=== PATIENT | female | born 1990 | race Caucasian/White ===

== ENCOUNTER 2017-01-20 08:43 | Inpatient (IN) | payer MEDICAID ==
[~2017-01-20] VITALS: Ht 160 cm; Wt 72.6 kg
[2017-01-20] MEDS: DEXT 5%-NACL 0.45% 1000 ML INJ 1,000 ML IV SCH ×2 (00:57→14:47)
[2017-01-20 08:44] VITALS: BP 128/70; PULSE 92; RESP 18; TEMP 100; O2SAT 99
[2017-01-20] MEDS ORDERED: KETOROLAC TROMETHAMINE 30 MG/ML (IVP) VIAL IV PUSH ONE (09:30)
[2017-01-20] MEDS ORDERED: MORPHINE SULFATE 4 MG/ML INJ IV PUSH ONE (09:30)
[2017-01-20] MEDS ORDERED: ONDANSETRON HCL 4 MG/2 ML VIAL IV PUSH ONE (09:30)
[2017-01-20] MEDS ORDERED: SODIUM CHLOR 0.9% 1000 ML INJ 1,000 ML IV ONE (09:30)
--- NOTE | 2017-01-20 09:31 | PD ---
HPI Chief Complaint: Flank/Kidney Pain Time Seen by Provider: 09:17 Travel History International Travel<30 days: No Contact w/Intl Traveler<30days: No Traveled to known affect area: No History of Present Illness HPI This is a 26-year-old female who presents to the emergency department with bilateral flank pain that's been going on for 2 days, constant, severe, associated with multiple episodes of vomiting. She denies any fevers or chills. She says that her right flank pain is worse and radiates into her lower abdomen. She has a history kidney stones. In April she had a kidney stone surgically removed in [place]. She went to the emergency department last night and had a CT scan done but she doesn't know what the results were and she was discharged with pain control. She says overnight her pain is worsened and she's been throwing up and not able to keep her pain medication down. PFSH Past Medical History Narrative Medical Kidney stones Medical History: Denies Significant Hx Tetanus Vaccination: Unknown Influenza Vaccination: No ?: Not Past Surgical History Surgical History: No Previous Surgery Social History Alcohol Use: No Tobacco Use: Yes Substance Use: Yes (marijuana) Allergies-Medications (Allergen,Severity, Reaction): Coded Allergies: Penicillins (Verified Allergy, Unknown, Rash, 01/20/17) Reported Meds & Prescriptions Reported Meds & Active Scripts Active No Active Prescriptions or Reported Medications Review of Systems Except as stated in HPI: all other systems reviewed are Neg Physical Exam Narrative GENERAL:Well appearing, no acute distress SKIN: Focused skin assessment warm and dry. HEAD: Atraumatic. Normocephalic. EYES: Pupils equal and round. No injection or drainage. ENT: Moist mucous membranes NECK: Trachea midline. CARDIOVASCULAR: Regular rate and rhythm. No murmur appreciated. RESPIRATORY: Clear to auscultation. Breath sounds equal bilaterally. GASTROINTESTINAL: Abdomen soft, diffusely mildly tender with no rebound or guarding. : Bilateral CVA tenderness. MUSCULOSKELETAL: No obvious deformities. NEUROLOGICAL: Awake and alert. No obvious cranial nerve deficits. Moving all extremities. PSYCHIATRIC: Appropriate mood and affect; insight and judgment normal. Data Data Last Documented VS Vital Signs Date Time Temp Pulse Resp B/P (MAP) Pulse Ox O2 Delivery O2 Flow Rate FiO2 01/20/17 08:44 100.0 92 18 128/70 (89) 99 Room Air Orders Orders Complete Blood Count With Diff (01/20/17 09:24) Comprehensive Metabolic Panel (01/20/17 09:24) ^ Insert Iv (01/20/17 09:24) Urinalysis - C+S If Indicated (01/20/17 09:24) Sodium Chlor 0.9% 1000 Ml Inj (Ns 1000 M (01/20/17 09:30) Ed Urine Pregnancytest Poc (01/20/17 09:24) Ketorolac Inj (Toradol Inj) (01/20/17 09:30) Ondansetron Inj (Zofran Inj) (01/20/17 09:30) Morphine Inj (Morphine Inj) (01/20/17 09:30) Urine Culture (01/20/17 09:35) Blood Culture (01/20/17 10:42) Lactic Acid (01/20/17 10:42) Ciprofloxacin 400 Mg Premix (Cipro 400 M (01/20/17 10:45) Consult Urology (01/20/17 ) (Hub Use Only)Inp Phy Cons/Ref (01/20/17 ) Admit Order (Ed Use Only) (01/20/17 12:09) Labs Laboratory Tests Test 01/20/17 09:35 01/20/17 10:45 White Blood Count 19.1 TH/MM3 Red Blood Count 4.32 MIL/MM3 Hemoglobin 14.3 GM/DL Hematocrit 41.5 % Mean Corpuscular Volume 96.0 FL Mean Corpuscular Hemoglobin 33.1 PG Mean Corpuscular Hemoglobin Concent 34.5 % Red Cell Distribution Width 12.7 % Platelet Count 231 TH/MM3 Mean Platelet Volume 7.8 FL Neutrophils (%) (Auto) 87.6 % Lymphocytes (%) (Auto) 6.0 % Monocytes (%) (Auto) 5.7 % Eosinophils (%) (Auto) 0.1 % Basophils (%) (Auto) 0.6 % Neutrophils # (Auto) 16.8 TH/MM3 Lymphocytes # (Auto) 1.1 TH/MM3 Monocytes # (Auto) 1.1 TH/MM3 Eosinophils # (Auto) 0.0 TH/MM3 Basophils # (Auto) 0.1 TH/MM3 CBC Comment DIFF FINAL Differential Comment Urine Color YELLOW Urine Turbidity HAZY Urine pH 7.5 Urine Specific [place] 1.019 Urine Protein TRACE mg/dL Urine Glucose (UA) NEG mg/dL Urine Ketones NEG mg/dL Urine Occult Blood SMALL Urine Nitrite NEG Urine Bilirubin NEG Urine Urobilinogen LESS THAN 2.0 MG/DL Urine Leukocyte Esterase MOD Urine RBC 22 /hpf Urine WBC 45 /hpf Urine Squamous Epithelial Cells 7 /hpf Urine Bacteria OCC /hpf Urine Mucus FEW /lpf Microscopic Urinalysis Comment CULTURE INDICATED Blood Urea Nitrogen 15 MG/DL Creatinine 1.35 MG/DL Random Glucose 98 MG/DL Total Protein 6.8 GM/DL Albumin 3.3 GM/DL Calcium Level 9.0 MG/DL Alkaline Phosphatase 70 U/L Aspartate Amino Transf (AST/SGOT) 22 U/L Alanine Aminotransferase (ALT/SGPT) 31 U/L Total Bilirubin 0.6 MG/DL Sodium Level 138 MEQ/L Potassium Level 3.8 MEQ/L Chloride Level 108 MEQ/L Carbon Dioxide Level 22.3 MEQ/L Anion Gap 8 MEQ/L Estimat Glomerular Filtration Rate 47 ML/MIN Lactic Acid Level 1.3 mmol/L [facility] Medical Decision Making Medical Screen Exam Complete: Yes Emergency Medical Condition: Yes Medical Record Reviewed: Yes (outside hospital CT scan demonstrates a stone at the right UPJ that is 1 x 1.3 cm) Interpretation(s) Temperature is 100.0 Leukocytosis of 19 87% neutrophils Electrolytes are reassuring Lactic acid is 1.3 Urinalysis demonstrates an infection Differential Diagnosis Hydronephrosis, pyelonephritis, urinary tract infection, nephrolithiasis Narrative Course This is a 26-year-old female who presents to the emergency department and diagnosed with a kidney stone yesterday at [place] which was 1 x 1.3 cm at the UPJ. Patient presents today feeling worse with fevers, vomiting and increasing pain. Labs demonstrate a leukocytosis of 19 and pyuria as well as blood in the urine. Patient was started on ciprofloxacin and given pain control and antiemetics. She'll be admitted for urologic intervention in the setting of a potentially infected obstructing kidney stone. Physician Communication Physician Communication Discussed with Dr. Ramírez and Dr. Taylor Diagnosis Primary Impression: Obstructive uropathy Admitting Information Admitting Physician Requests: Admit Scripts No Active Prescriptions or Reported Meds Bere Dias MD Jan 20, 2017 09:31
[2017-01-20 10:08] LABS: AUTOMATED NEUTROPHIL # 16.8 TH/MM3 (1.8-7.7); BASOPHIL # 0.1 TH/MM3 (0-0.2); BASOPHIL % 0.6 % (0.0-2.0); EOSINOPHIL % 0.1 % (0.0-4.0); HEMATOCRIT 41.5 % (35.0-46.0); HEMO FLAGS DIFF FINAL; LYMPHOCYTE # 1.1 TH/MM3 (1.0-4.8); MEAN CORPUSCULAR HEMOGLOBIN 33.1 PG (27.0-34.0); MEAN CORPUSCULAR HGB CONC 34.5 % (32.0-36.0); MONO % 5.7 % (0.0-8.0); NEUT % 87.6 % (16.0-70.0); PLATELET COUNT 231 TH/MM3 (150-450); RED BLOOD COUNT 4.32 MIL/MM3 (4.00-5.30); RED CELL DISTRIBUTION WIDTH 12.7 % (11.6-17.2); WHITE BLOOD COUNT 19.1 TH/MM3 (4.0-11.0)
[2017-01-20 10:11] LABS: BACTERIA, URINE OCC /hpf; BLOOD, URINE SMALL (NEG); COMMENT (UR) CULTURE INDICATED; CULTURE IF INDICATED CULTURE INDICATED; GLUCOSE,URINE NEG (NEG); KETONE, URINE NEG (NEG); MUCUS URINE FEW /lpf (OCC); NITRITE,URINE NEG (NEG); PH, URINE 7.5 (5.0-8.5); SQUAMOUS EPITHELIAL CELL URINE 7 /hpf (0-5); URINE COLOR YELLOW (YELLW/STRAW)
[2017-01-20 10:29] LABS: ANION GAP 8 MEQ/L (5-15); AST (GOT) 22 U/L (15-37); BICARBONATE 22.3 MEQ/L (21.0-32.0); BLOOD UREA NITROGEN 15 MG/DL (7-18); CHLORIDE 108 MEQ/L (98-107); GLOMERULAR FILTRATION RATE 47 ML/MIN (>89); POTASSIUM 3.8 MEQ/L (3.5-5.1); SODIUM (NA) 138 MEQ/L (136-145)
[2017-01-20 10:30] LABS: ALT (GPT) 31 U/L (10-53)
[2017-01-20 10:32] LABS: ALKALINE PHOSPHATASE 70 U/L (45-117); TOTAL BILIRUBIN ADULT 0.6 MG/DL (0.2-1.0)
[2017-01-20] MEDS ORDERED: CIPROFLOXACIN 400 MG PREMIX 200 ML IV ONE (10:45)
[2017-01-20 11:00] VITALS: BP 124/73; PULSE 87; RESP 17; O2SAT 98
[2017-01-20] MEDS ORDERED: ONDANSETRON HCL 4 MG/2 ML VIAL IV PUSH PRN (12:15)
[2017-01-20] MEDS ORDERED: SODIUM CHLORIDE 0.9% FLUSH 10 ML FLUSH IV FLUSH PRN (12:15)
[2017-01-20 12:47] VITALS: BP 126/69
--- NOTE | 2017-01-20 13:12 | PD.CONS ---
HPI Service Urology Consult Requested By Reason for Consult Obstructing right ureteropelvic junction calculus Primary Care Physician No Primary Care Physician Diagnosis: History of Present Illness 26-year-old female with recent development right flank pain who presented to [facility] in [facility] yesterday and was diagnosed with an obstructing 1.3 cm right renal pelvis calculus. Patient was treated and released and repeat present to the emergency room here at [place] earlier today with worsening symptoms. Patient was admitted to the medical service and a urology consult placed. Upon arrival to the emergency room the patient was noted to be febrile with elevation in her white blood cell count. Patient does have a history of prior nephrolithiasis and is status post percutaneous stone removal in April of this year. At the time of consultation the patient was resting comfortably in her pain well managed. Review of Systems Constitutional: COMPLAINS OF: Fever, Chills Cardiovascular: DENIES: Chest pain Gastrointestinal: COMPLAINS OF: Abdominal pain (right side) Genitourinary: DENIES: Hematuria Musculoskeletal: COMPLAINS OF: Back pain (right flank) Except as stated in HPI: all other systems reviewed are Neg Past Family Social History Past Medical History Nephrolithiasis Past Surgical History Status post percutaneous stone removal Reported Medications Refer to EMR Allergies: Coded Allergies: Penicillins (Verified Allergy, Unknown, Rash, 01/20/17) Active Ordered Medications Refer to EMR Family History Mother with history nephrolithiasis Social History Positive tobacco usage. Denies alcohol or intravenous drug abuse. Physical Exam Vital Signs Date Time Temp Pulse Resp B/P (MAP) Pulse Ox O2 Delivery O2 Flow Rate FiO2 01/20/17 12:47 84 15 126/69 (88) 99 01/20/17 11:00 87 17 124/73 (90) 98 Room Air 01/20/17 08:44 100.0 92 18 128/70 (89) 99 Room Air Physical Exam GENERAL: This is a well-nourished, well-developed patient, in no apparent distress. SKIN: No rashes, ecchymoses or lesions. Cool and dry. HEAD: Atraumatic. Normocephalic. No temporal or scalp tenderness. EYES: Pupils equal round and reactive. Extraocular motions intact. No scleral icterus. No injection or drainage. ENT: Nose without bleeding, purulent drainage or septal hematoma. Throat without erythema, tonsillar hypertrophy or exudate. Uvula midline. Airway patent. NECK: Trachea midline. No JVD or lymphadenopathy. Supple, nontender, no meningeal signs. CARDIOVASCULAR: Regular rate and rhythm without murmurs, gallops, or rubs. RESPIRATORY: Clear to auscultation. Breath sounds equal bilaterally. No wheezes , rales, or rhonchi. GASTROINTESTINAL: Abdomen soft, non-tender, nondistended. No hepato-splenomegaly , or palpable masses. No guarding. GENITOURINARY: No CVA tenderness MUSCULOSKELETAL: Extremities without clubbing, cyanosis, or edema. No joint tenderness, effusion, or edema noted. No calf tenderness. Negative Homans sign bilaterally. NEUROLOGICAL: Awake and alert. Cranial nerves II through XII intact. Motor and sensory grossly within normal limits. Five out of 5 muscle strength in all muscle groups. Normal speech. Lab results reviewed: Yes Laboratory Tests Test 01/20/17 09:35 01/20/17 10:45 White Blood Count 19.1 Red Blood Count 4.32 Hemoglobin 14.3 Hematocrit 41.5 Mean Corpuscular Volume 96.0 Mean Corpuscular Hemoglobin 33.1 Mean Corpuscular Hemoglobin Concent 34.5 Red Cell Distribution Width 12.7 Platelet Count 231 Mean Platelet Volume 7.8 Neutrophils (%) (Auto) 87.6 Lymphocytes (%) (Auto) 6.0 Monocytes (%) (Auto) 5.7 Eosinophils (%) (Auto) 0.1 Basophils (%) (Auto) 0.6 Neutrophils # (Auto) 16.8 Lymphocytes # (Auto) 1.1 Monocytes # (Auto) 1.1 Eosinophils # (Auto) 0.0 Basophils # (Auto) 0.1 CBC Comment DIFF FINAL Differential Comment Urine Color YELLOW Urine Turbidity HAZY Urine pH 7.5 Urine Specific [place] 1.019 Urine Protein TRACE Urine Glucose (UA) NEG Urine Ketones NEG Urine Occult Blood SMALL Urine Nitrite NEG Urine Bilirubin NEG Urine Urobilinogen LESS THAN 2.0 Urine Leukocyte Esterase MOD Urine RBC 22 Urine WBC 45 Urine Squamous Epithelial Cells 7 Urine Bacteria OCC Urine Mucus FEW Microscopic Urinalysis Comment CULTURE INDICATED Blood Urea Nitrogen 15 Creatinine 1.35 Random Glucose 98 Total Protein 6.8 Albumin 3.3 Calcium Level 9.0 Alkaline Phosphatase 70 Aspartate Amino Transf (AST/SGOT) 22 Alanine Aminotransferase (ALT/SGPT) 31 Total Bilirubin 0.6 Sodium Level 138 Potassium Level 3.8 Chloride Level 108 Carbon Dioxide Level 22.3 Anion Gap 8 Estimat Glomerular Filtration Rate 47 Lactic Acid Level 1.3 Date/Time Source Procedure Growth Status 01/20/17 10:50 Blood Peripheral Aerobic Blood Culture Pending Received 01/20/17 10:50 Blood Peripheral Anaerobic Blood Culture Pending Received 01/20/17 09:35 Urine Clean Catch Urine Culture Pending Received Result Diagram: 01/20/17 0935 01/20/17 0935 Assessment and Plan Assessment and Plan Urologic impression: Obstructing 1.3 cm right ureteropelvic junction calculus Plan: #1 keep patient nothing by mouth. #2 patient scheduled for cystoscopy, right retrograde pyelogram and right ureteral stent placement this evening. Ignacio Ramírez MD Jan 20, 2017 13:12
--- NOTE | 2017-01-20 13:38 | HHI.HP ---
[facility] No Primary Care Physician Admission Diagnosis obstructing uropathy Diagnoses: Chief Complaint: Right flank pain Travel History International Travel<30 Days: No Contact w/Intl Traveler <30 Da: No Traveled to Known Affected Are: No History of Present Illness 26-year-old female with previous history of kidney stone presented to the hospital with complaint of right flank/groin pain that has been ongoing since yesterday. The patient presented to an outside hospital emergency room yesterday evening. She was told she had a kidney stone and was sent home with pain medications and antinausea medications. The pain will worsen overnight and she presented to our hospital. Records reviewed from the outside hospital. CAT scan showed a 1.3 x 1 cm calculus at the right UPJ. Workup in the emergency room revealed a leukocytosis and abnormal urinalysis suggestive of infection. Currently the patient reports persistent and severe pain. She denies dysuria or hematuria. She endorsed some fevers and chills at home. Review of Systems Constitutional: COMPLAINS OF: Fever, Chills Gastrointestinal: COMPLAINS OF: Abdominal pain Genitourinary: DENIES: Hematuria, Dysuria Except as stated in HPI: all other systems reviewed are Neg Past Family Social History Past Medical History Previous kidney stone. Per patient she had a surgical removal of a right kidney stone last April. She does not know the name of the urologist. Past Surgical History Surgical removal of right kidney stone Reported Medications Reported Meds & Active Scripts Active No Active Prescriptions or Reported Medications Allergies: Coded Allergies: Penicillins (Verified Allergy, Unknown, Rash, 01/20/17) Family History Mother has history of kidney stones Social History Patient admits to smoking cigarettes and occasional marijuana. She denies alcohol or other illicit drugs. Physical Exam Vital Signs Vital Signs Date Time Temp Pulse Resp B/P (MAP) Pulse Ox O2 Delivery O2 Flow Rate FiO2 01/20/17 12:47 84 15 126/69 (88) 99 01/20/17 11:00 87 17 124/73 (90) 98 Room Air 01/20/17 08:44 100.0 92 18 128/70 (89) 99 Room Air Physical Exam CONSTITUTIONAL/GENERAL: This is an adequately nourished patient, in no apparent distress. Vital signs reviewed SKIN: No jaundice, rashes, or concerning lesions. Not diaphoretic. HEAD: Atraumatic. Normocephalic. EYES: Pupils equal and round and reactive. Extra ocular motions are intact. No scleral icterus. No injection or drainage. ENT: Hearing grossly normal. Nose without drainage. Throat without visible erythema, exudates, masses, or lesions. NECK: Trachea midline. Neck is supple, non-tender. No palpable thyroid enlargement or nodularity. CARDIOVASCULAR: Normal rate and regular rhythm without murmurs, gallops, or rubs. No JVD. Peripheral pulses 2+ and symmetric. RESPIRATORY/CHEST: Symmetric, unlabored respirations. Breath sounds equal and clear to auscultation bilaterally. No wheezes, crackles, rales, or rhonchi. GASTROINTESTINAL: Abdomen soft, marked tenderness to palpation involving the right flank/lower quadrant MUSCULOSKELETAL: Extremities without clubbing, cyanosis, or edema. NEUROLOGICAL: Awake and alert. Motor and sensory grossly within normal limits. Follows commands. Move all extremities spontaneously. No focal deficits. PSYCHIATRIC: No obvious mood problems. No apparent hallucinations or other psychotic thought process. Laboratory Laboratory Tests Test 01/20/17 09:35 01/20/17 10:45 White Blood Count 19.1 Red Blood Count 4.32 Hemoglobin 14.3 Hematocrit 41.5 Mean Corpuscular Volume 96.0 Mean Corpuscular Hemoglobin 33.1 Mean Corpuscular Hemoglobin Concent 34.5 Red Cell Distribution Width 12.7 Platelet Count 231 Mean Platelet Volume 7.8 Neutrophils (%) (Auto) 87.6 Lymphocytes (%) (Auto) 6.0 Monocytes (%) (Auto) 5.7 Eosinophils (%) (Auto) 0.1 Basophils (%) (Auto) 0.6 Neutrophils # (Auto) 16.8 Lymphocytes # (Auto) 1.1 Monocytes # (Auto) 1.1 Eosinophils # (Auto) 0.0 Basophils # (Auto) 0.1 CBC Comment DIFF FINAL Differential Comment Urine Color YELLOW Urine Turbidity HAZY Urine pH 7.5 Urine Specific [place] 1.019 Urine Protein TRACE Urine Glucose (UA) NEG Urine Ketones NEG Urine Occult Blood SMALL Urine Nitrite NEG Urine Bilirubin NEG Urine Urobilinogen LESS THAN 2.0 Urine Leukocyte Esterase MOD Urine RBC 22 Urine WBC 45 Urine Squamous Epithelial Cells 7 Urine Bacteria OCC Urine Mucus FEW Microscopic Urinalysis Comment CULTURE INDICATED Blood Urea Nitrogen 15 Creatinine 1.35 Random Glucose 98 Total Protein 6.8 Albumin 3.3 Calcium Level 9.0 Alkaline Phosphatase 70 Aspartate Amino Transf (AST/SGOT) 22 Alanine Aminotransferase (ALT/SGPT) 31 Total Bilirubin 0.6 Sodium Level 138 Potassium Level 3.8 Chloride Level 108 Carbon Dioxide Level 22.3 Anion Gap 8 Estimat Glomerular Filtration Rate 47 Lactic Acid Level 1.3 Date/Time Source Procedure Growth Status 01/20/17 10:50 Blood Peripheral Aerobic Blood Culture Pending Received 01/20/17 10:50 Blood Peripheral Anaerobic Blood Culture Pending Received 01/20/17 09:35 Urine Clean Catch Urine Culture Pending Received Result Diagram: 01/20/17 0935 01/20/[address] scan report from outside hospital reviewed which showed a 1.3 x 1.0 cm calculus at the right UPJ, with moderate concomitant hydronephrosis. In addition there is a nonobstructing 4 mm calculus within the proximal right ureter at the level of L4. Few nonobstructing right lower pole calyceal calculi, measuring up to 5 mm, as well as several punctate left renal calyceal calculi measuring up to 3 mm Bilateral renal medullary nephrocalcinosis Caprini VTE Risk Assessment Caprini VTE Risk Assessment: No/Low Risk (score <= 1) Caprini Risk Assessment Model Point Value = 1 Point Value = 2 Point Value = 3 Point Value = 5 Age 41-60 Minor surgery BMI > 25 kg/m2 Swollen legs Varicose veins or History of unexplained or recurrent spontaneous Oral contraceptives or hormone replacement Sepsis (< 1 month) Serious lung disease, including pneumonia (< 1 month) Abnormal pulmonary function Acute myocardial infarction Congestive heart failure (< 1 month) History of inflammatory bowel disease Medical patient at bed rest Age 61-74 Arthroscopic surgery Major open surgery (> 45 min) Laparoscopic surgery (> 45 min) Malignancy Confined to bed (> 72 hours) Immobilizing plaster cast Central venous access Age >= 75 History of VTE Family history of VTE Factor V Leiden Prothrombin [id number] Lupus anticoagulant Anticardiolipin antibodies Elevated serum homocysteine Heparin-induced thrombocytopenia Other congenital or acquired thrombophilia Stroke (< 1 month) Elective arthroplasty Hip, pelvis, or leg fracture Acute spinal cord injury (< 1 month) Prophylaxis Regimen Total Risk Factor Score Risk Level Prophylaxis Regimen 0-1 Low Early ambulation 2 Moderate Order ONE of the following: *Sequential Compression Device (SCD) *Heparin 5000 units SQ BID 3-4 Higher Order ONE of the following medications: *Heparin 5000 units SQ TID *Enoxaparin/Lovenox 40 mg SQ daily (WT < 150 kg, CrCl > 30 mL/min) *Enoxaparin/Lovenox 30 mg SQ daily (WT < 150 kg, CrCl > 10-29 mL/min) *Enoxaparin/Lovenox 30 mg SQ BID (WT < 150 kg, CrCl > 30 mL/min) AND/OR *Sequential Compression Device (SCD) 5 or more Highest Order ONE of the following medications: *Heparin 5000 units SQ TID (Preferred with Epidurals) *Enoxaparin/Lovenox 40 mg SQ daily (WT < 150 kg, CrCl > 30 mL/min) *Enoxaparin/Lovenox 30 mg SQ daily (WT < 150 kg, CrCl > 10-29 mL/min) *Enoxaparin/Lovenox 30 mg SQ BID (WT < 150 kg, CrCl > 30 mL/min) AND *Sequential Compression Device (SCD) Assessment and Plan Problem List: (1) Complicated UTI (urinary tract infection) ICD Code: N39.0 - Urinary tract infection, site not specified (2) Nephrolithiasis ICD Code: N20.0 - Calculus of kidney (3) Obstructive uropathy ICD Code: N13.9 - Obstructive and reflux uropathy, unspecified Status: Acute (4) Leukocytosis ICD Code: D72.829 - Elevated white blood cell count, unspecified (5) Acute renal failure ICD Code: N17.9 - Acute kidney failure, unspecified Assessment and Plan 26-year-old female with known history of kidney stone presented with acute obstructive uropathy secondary to stone at the right UPJ. Nephrolithiasis: 1.3 x 1 cm calculus at the right UPJ. Patient with previous history of stone removal surgically per history. - Urology consulted. Plan for intervention today. - Keep NPO. - Pain control, IV fluids - Strain urine Complicated UTI/leukocytosis: Probably secondary to infected stone as above. Urinalysis abnormal. - Continue empiric antibiotics with ciprofloxacin IV. - Follow cultures Acute renal insufficiency: Likely secondary to obstructive uropathy. - Continue IV hydration as above. - Urology following for intervention regarding obstructive uropathy as above. GI prophylaxis: Stool softener PRN constipation. DVT PPx: SCDs. Low risk Discussed Condition With ER physician, Dr. Dias. Physician Certification 2 Midnight Certification Type: Admission for Inpatient Services Order for Inpatient Services The services are ordered in accordance with Medicare regulations or non- Medicare payer requirements, as applicable. In the case of services not specified as inpatient-only, they are appropriately provided as inpatient services in accordance with the 2-midnight benchmark. Estimated LOS (days): 3 days is the estimated time the patient will need to remain in the hospital, assuming treatment plan goals are met and no additional complications. Post-Hospital Plan: Home Mimi Early MD Jan 20, 2017 13:38
[2017-01-20] MEDS: SODIUM CHLORIDE 0.9% FLUSH 10 ML FLUSH IV FLUSH SCH (14:47)
[2017-01-20] MEDS: CIPROFLOXACIN 400 MG PREMIX 200 ML IV SCH (14:48)
[2017-01-20] MEDS: MORPHINE SULFATE 4 MG/ML INJ IV PUSH PRN (14:48)
[2017-01-20 15:59] VITALS: BP 123/67; PULSE 100; RESP 17; TEMP 101.3; O2SAT 97
[2017-01-20] MEDS ORDERED: MEPERIDINE HCL 25 MG/ML VIAL ONE (17:45)
--- NOTE | 2017-01-20 17:53 | PD.OP ---
Operative Report Date of Surgery: Jan 20, 2017 Preoperative Diagnosis: (1) Renal calculus, right Postoperative Diagnosis: (1) Renal calculus, right Procedure: Cystoscopy, right retrograde pyelogram and right ureteral stent placement Anesthesia: General Surgeon: Ignacio Ramírez Loop Tender(s): Dr. Nichole Resident Surgeon: Dr. Nichole Operation and Findings: Indication for procedure: Case of a pleasant 26-year-old female with a 1.3 cm obstructing right ureteropelvic junction calculus who presents now for right ureteral stent placement. Operative procedure in detail: Patient was brought to the operating suite and placed supine on the cystoscopy table. She was then placed under general anesthesia. She was then repositioned in the dorsolithotomy position and prepped and draped in normal sterile fashion. After appropriate timeout was undertaken, I proceeded with cystoscopic evaluation as follows. The rigid cystoscope with the 20 [place] sheath and 30 lens was utilized and both right and left ureteral orifices were in correct anatomic position with clear reflux on the left and no reflux on the right. A 6 [place] open-ended ureteral catheter was utilized a right retrograde pyelogram study was performed that demonstrated the 1.3 cm obstructing right ureteropelvic junction calculus. I advanced a sensor 0.035 wire up to the point of the kidney stone and utilizing the wire as well as the open-ended catheter attempted to push the stone in a cephalad direction without success. I then advanced the open-ended catheter beyond the stone and the wire was withdrawn. A right retrograde pyelogram study was performed to outline the collecting system. The open-ended catheter was then exchanged for a 6 [place] 24 cm [place] stent placed under both cystoscopic and fluoroscopic guidance without difficulty. Once the stent was in proper position the trailing string was removed. The bladder was then drained of irrigant fluid and the cystoscope was withdrawn. The patient tolerated the procedures without complications and was transferred to the PACU in satisfactory condition. Ignacio Ramírez MD Jan 20, 2017 17:53
[2017-01-20] MEDS ORDERED: TAMS5CAP PO (17:56)
[2017-01-20] MEDS ORDERED: CIPR-9 PO (17:56)
[2017-01-20] MEDS ORDERED: PERC5TAB12 PO (17:56)
[2017-01-20] MEDS ORDERED: DO NOT ADM ANY ANTICOAGULANT DRUGS PRN (18:15)
[2017-01-20] MEDS: oxyCODONE/ACETAMINOPHEN 5 MG/325 MG TAB PO PRN (21:30)
[2017-01-20] MEDS: NICOTINE 21 MG/24 HR PATCH T-DERMAL SCH (22:12)
[2017-01-21] VITALS: BP 104/60; PULSE 86; RESP 16; TEMP 97.7; O2SAT 98
[2017-01-21] MEDS: DEXT 5%-NACL 0.45% 1000 ML INJ 1,000 ML IV SCH (00:57)
[2017-01-21] MEDS: MORPHINE SULFATE 4 MG/ML INJ IV PUSH PRN (01:04)
[2017-01-21] MEDS: oxyCODONE/ACETAMINOPHEN 5 MG/325 MG TAB PO PRN ×2 (05:53→09:39)
[2017-01-21 08:00] VITALS: BP 110/65; PULSE 76; RESP 18; TEMP 96.3; O2SAT 98
[2017-01-21 08:06] LABS: AUTOMATED NEUTROPHIL # 12.4 TH/MM3 (1.8-7.7); BASOPHIL % 0.2 % (0.0-2.0); HEMATOCRIT 36.7 % (35.0-46.0); HEMO FLAGS DIFF FINAL; LYMPH % 5.5 % (9.0-44.0); LYMPHOCYTE # 0.8 TH/MM3 (1.0-4.8); MEAN CELL VOLUME 96.6 FL (80.0-100.0); MEAN CORPUSCULAR HGB CONC 34.2 % (32.0-36.0); MONO % 3.5 % (0.0-8.0); NEUT % 90.8 % (16.0-70.0); PLATELET COUNT 206 TH/MM3 (150-450); RED CELL DISTRIBUTION WIDTH 12.5 % (11.6-17.2); WHITE BLOOD COUNT 13.7 TH/MM3 (4.0-11.0)
[2017-01-21 08:15] LABS: POTASSIUM 4.1 MEQ/L (3.5-5.1)
[2017-01-21] MEDS: SODIUM CHLORIDE 0.9% FLUSH 10 ML FLUSH IV FLUSH SCH (09:00)
[2017-01-21] MEDS: NICOTINE 21 MG/24 HR PATCH T-DERMAL SCH (09:32)
[2017-01-21] MEDS: CIPROFLOXACIN 400 MG PREMIX 200 ML IV SCH (09:39)
--- NOTE | 2017-01-21 09:44 | HHI.FPPN ---
Subjective Remarks Ms. Hansen was afebrile with stable vital signs overnight. Patient reports doing well following ureteral stent placement yesterday evening. Patient reports normal voiding with normal urine volume; she has mild pain at the conclusion of urination but otherwise denies dysuria. Patient also reports improvement in right-sided back pain; she no longer has pain when breathing deeply. Patient eating/drinking normally. No reported chest pain, shortness of breath, abdominal pain, or other symptoms. Patient feels stable to go home and asks questions regarding discharge/follow-up. Objective Vitals Vital Signs Date Time Temp Pulse Resp B/P (MAP) Pulse Ox O2 Delivery O2 Flow Rate FiO2 01/21/17 08:00 96.3 76 18 110/65 (80) 98 01/21/17 06:53 17 01/21/17 01:17 Room Air 01/21/17 01:11 17 01/21/17 00:00 97.7 86 16 104/60 (75) 98 01/20/17 18:00 99 18 110/57 (74) 100 Nasal Cannula 4 01/20/17 17:45 104 18 108/52 (70) 100 Nasal Cannula 4 01/20/17 17:42 98.9 112 18 112/59 (76) 100 4 01/20/17 15:59 101.3 100 17 123/67 (85) 97 01/20/17 12:47 84 15 126/69 (88) 99 01/20/17 11:00 87 17 124/73 (90) 98 Room Air I/O 01/20/17 01/20/17 01/20/17 01/21/17 01/21/17 01/21/17 07:00 15:00 23:00 07:00 15:00 23:00 Intake Total 0 ml 1200 ml 1480 ml 1240 ml Output Total 202 ml Balance 0 ml 1200 ml 1278 ml 1240 ml Intake Oral 480 ml 240 ml IV Total 0 ml 1200 ml 1000 ml 1000 ml Output Estimated Blood Loss 2 ml Other 200 ml # Voids 2 2 # Bowel Movements 0 0 Result Diagram: 01/21/1765001/21/1751 Objective Remarks GENERAL: Patient appears comfortable, in no acute distress. SKIN: Warm and dry, no rashes appreciated EYES: No scleral icterus, injection, or drainage. CARDIOVASCULAR: Regular rate and rhythm without murmurs. Grossly normal peripheral perfusion. RESPIRATORY: Normal respiratory rate. Lungs clear to auscultation bilaterally. GASTROINTESTINAL: Abdomen soft, nondistended, nontender. Bowel sounds normal. Back: R sided CVA tenderness present MUSCULOSKELETAL: No lower extremity swelling. No appreciated calf asymmetry. NEURO/PSYCH: Awake, alert, and oriented. Cranial nerves grossly normal. Grossly normal motor and sensory function. A/P Assessment and Plan Ms. Hansen is a 26 yo F with: Problem List: (1) Renal calculus, right ICD Codes: N20.0 - Calculus of kidney Status: Acute Plan: Impression: Obstructing 1.3 cm right renal pelvis calculus per imaging from transferring facility ([facility]). History of prior renal calculi 04/2016. Febrile with leukocytosis (WBC 19.1) on admission. Cr 1.35 S/P cystoscopy, right retrograde pyelogram, and right ureteral stent placement 01/20 01/21: Doing well; normal urination. Decrease in R sided CVA tenderness. Improvement in leukocytosis (WBC 19.1-> 13.7) on IV ciprofloxacin s/p ureteral stent placement. Cr improved to 1.13 on maintenance IVF -Patient deemed stable for discharge home as vital signs and pain control -Plan for outpatient shockwave lithotripsy -Continue ciprofloxacin 500mg BID as outpatient -Tamsulosin 0.4mg HS for stent irritation -Percocet for pain control Jose Nichole MD, R3 Jan 21, 2017 09:44
--- NOTE | 2017-01-21 10:00 | HHI.DCPOC ---
Discharge Care Plan Diagnosis: (1) Obstructive uropathy (2) Renal calculus, right Goals to Promote Your Health * To prevent worsening of your condition and complications * To maintain your health at the optimal level Directions to Meet Your Goals Take your medications as prescribed Follow your dietary instruction Follow activity as directed Keep your appointments as scheduled Take your immunizations and boosters as scheduled If your symptoms worsen call your PCP, if no PCP go to Urgent Care Center or Emergency Room Smoking is Dangerous to Your Health. Avoid second hand smoke Call the 24-hour hour crisis hotline for domestic abuse at Mimi Early MD Jan 21, 2017 10:00
[2017-01-21] MEDS ORDERED: PERC5TAB12 PO (10:01)
--- NOTE | 2017-01-21 10:03 | HHI.PR ---
Subjective Remarks Patient reports she is feeling great today. Abdominal pain significantly improved. Tolerating a diet. Cleared by urology for discharge to follow up outpatient for lithotripsy. Objective Vitals Vital Signs Date Time Temp Pulse Resp B/P (MAP) Pulse Ox O2 Delivery O2 Flow Rate FiO2 01/21/17 08:00 96.3 76 18 110/65 (80) 98 01/21/17 06:53 17 01/21/17 01:17 Room Air 01/21/17 01:11 17 01/21/17 00:00 97.7 86 16 104/60 (75) 98 01/20/17 18:00 99 18 110/57 (74) 100 Nasal Cannula 4 01/20/17 17:45 104 18 108/52 (70) 100 Nasal Cannula 4 01/20/17 17:42 98.9 112 18 112/59 (76) 100 4 01/20/17 15:59 101.3 100 17 123/67 (85) 97 01/20/17 12:47 84 15 126/69 (88) 99 01/20/17 11:00 87 17 124/73 (90) 98 Room Air I/O 01/20/17 01/20/17 01/20/17 01/21/17 01/21/17 01/21/17 07:00 15:00 23:00 07:00 15:00 23:00 Intake Total 0 ml 1200 ml 1480 ml 1240 ml Output Total 202 ml Balance 0 ml 1200 ml 1278 ml 1240 ml Intake Oral 480 ml 240 ml IV Total 0 ml 1200 ml 1000 ml 1000 ml Output Estimated Blood Loss 2 ml Other 200 ml # Voids 2 2 # Bowel Movements 0 0 Result Diagram: 01/21/17 0651 01/21/17 0651 Objective Remarks GENERAL: This is a well-nourished, well-developed patient, in no apparent distress. CARDIOVASCULAR: Normal rate and regular rhythm without murmurs, gallops, or rubs. RESPIRATORY: Good respiratory efforts. Breath sounds equal and clear to auscultation bilaterally. GASTROINTESTINAL: Abdomen soft, non-tender, non-distended. Normal active bowel sounds MUSCULOSKELETAL: Extremities without cyanosis, or edema. NEURO: Alert & Oriented x4 to person, place, time, situation. Moves all ext x4 PSYCH: Appropriate mood and affect. A/P Problem List: (1) Complicated UTI (urinary tract infection) ICD Code: N39.0 - Urinary tract infection, site not specified (2) Nephrolithiasis ICD Code: N20.0 - Calculus of kidney (3) Obstructive uropathy ICD Code: N13.9 - Obstructive and reflux uropathy, unspecified Status: Acute (4) Leukocytosis ICD Code: D72.829 - Elevated white blood cell count, unspecified (5) Acute renal failure ICD Code: N17.9 - Acute kidney failure, unspecified Assessment and Plan 26-year-old female with known history of kidney stone presented with acute obstructive uropathy secondary to stone at the right UPJ. Nephrolithiasis: 1.3 x 1 cm calculus at the right UPJ. Patient with previous history of stone removal surgically per history. -Patient was seen by urology and underwent cystoscopy and stent placement. Her symptoms significantly improved very quickly. - She will follow-up outpatient with urology for lithotripsy. Complicated UTI/leukocytosis: Probably secondary to infected stone as above. Urinalysis abnormal. -Patient treated with empiric antibiotics with ciprofloxacin IV. Discharged on oral Cipro - Follow cultures Acute renal insufficiency: Likely secondary to obstructive uropathy. - Significantly improved after intervention above and IV hydration. Patient counseled to continue with oral hydration. Discharge Planning Discharge home in good condition Activity: Regular as tolerated Diet: Regular as tolerated Follow-up with: Urology Meds: Mimi Raymundo MD Jan 21, 2017 10:03
[2017-01-21] MEDS ORDERED: REMOVE OLD PATCH T-DERMAL SCH (21:00)
== END 2017-01-21 15:23 | disposition home or self-care (01) | DRG 694 ==
LOC: NEPD 08:43 → NEDA 12:12 → N06A 12:49
PROVIDERS: ADMIT Family Medicine; ATTEND Family Medicine
PROC: BT1D1ZZ Fluoroscopy of Right Kidney, Ureter and Bladder using Low Osmolar Contrast (ICD-10-PCS; 2017-01-20)
PROC: 0T768DZ Dilation of Right Ureter with Intraluminal Device, Via Natural or Artificial Opening Endoscopic (ICD-10-PCS; principal; 2017-01-20 16:35)
DX: N20.2 Calculus of kidney with calculus of ureter (principal); N17.9 Acute kidney failure, unspecified; N39.0 Urinary tract infection, site not specified; N13.9 Obstructive and reflux uropathy, unspecified; Z72.0 Tobacco use
CPT/HCPCS: 80048; 80053; 81001; 83605; 84703; 85025; 87040; 87086; J0744; J1885; J2175; J2270; J2405; J7030

== ENCOUNTER 2017-02-02 15:56 | Emergency (ER) | payer MEDICAID ==
[~2017-02-02 15:56] MED LIST: PERC5TAB12 PO; TAMS5CAP PO
[2017-02-02 15:58] VITALS: BP 121/75; PULSE 82; RESP 18; TEMP 98.6; O2SAT 99
--- NOTE | 2017-02-02 22:44 | PD ---
HPI Chief Complaint: Complaint Time Seen by Provider: 22:44 Travel History International Travel<30 days: No Contact w/Intl Traveler<30days: No Traveled to known affect area: No History of Present Illness HPI 26 year-old female presents to the emergency department for evaluation of persistent lower abdominal pain. Patient has history of a KIDNEY STONE AND STENT PLACED BY DR DOMINGUEZ 2 WEEKS AGO; she has not yet followed up. . HAS BEEN HAVING PAIN SINCE. ABDOMINAL PAIN, SUPRAPUBIC AND WITH URINATION. It is severe in nature. Constant. NO FEVER OR CHILLS PFSH Past Medical History Medical History: Denies Significant Hx Kidney Stones: Yes (MULTIPLE) ?: Unknown Social History Alcohol Use: No Tobacco Use: Yes Substance Use: Yes (marijuana) Allergies-Medications (Allergen,Severity, Reaction): Coded Allergies: Penicillins (Verified Allergy, Unknown, Rash, 01/20/17) Reported Meds & Prescriptions Reported Meds & Active Scripts Active Percocet (Oxycodone-Acetaminophen) 5-325 mg Tab 1-2 Tab PO Q6HR PRN Flomax (Tamsulosin HCl) 0.4 Mg Cap 0.4 Mg PO HS Review of Systems Except as stated in HPI: all other systems reviewed are Neg Physical Exam Narrative GENERAL: Well-nourished female patient, appears without distress SKIN: Warm and dry. HEAD: Atraumatic. Normocephalic. EYES: Pupils equal and round. No scleral icterus. No injection or drainage. ENT: No nasal bleeding or discharge. Mucous membranes pink and moist. NECK: Trachea midline. CARDIOVASCULAR: Regular rate RESPIRATORY: No accessory muscle use. GASTROINTESTINAL: Abdomen nondistended. MUSCULOSKELETAL: Extremities without clubbing, cyanosis, or edema. No obvious deformities. NEUROLOGICAL: Awake and alert. No obvious cranial nerve deficits. Normal speech. Data Data Last Documented VS Vital Signs Date Time Temp Pulse Resp B/P (MAP) Pulse Ox O2 Delivery O2 Flow Rate FiO2 02/02/17 19:00 02/02/17 15:58 98.6 82 18 99 Orders Orders Urinalysis - C+S If Indicated (02/02/17 16:20) Ed Urine Pregnancytest Poc (02/02/17 16:20) MDM Medical Decision Making Medical Screen Exam Complete: Yes Emergency Medical Condition: Yes Medical Record Reviewed: Yes Differential Diagnosis UTI versus renal calculi versus STD versus PID Narrative Course Prior to workup being complete, patient is choosing to leave AGAINST MEDICAL ADVICE. AMA: The risks of leaving against medical advice without further evaluation treatment were discussed with the patient. These risks include cardiac dysfunction, cardiac dysrhythmia, possible heart attack, possible stroke or . The patient indicated understanding of these risks and appeared to have the capacity to make this decision. Diagnosis Primary Impression: Abdominal pain Qualified Codes: R10.30 - Lower abdominal pain, unspecified Patient Instructions: General Instructions Departure Forms: Tests/Procedures Disposition: 07 AGAINST MEDICAL ADVICE Condition: Stable Arti Sinha Feb 02, 2017 22:44
== END 2017-02-02 19:00 | disposition left against medical advice (07) ==
LOC: NED 18:55
DX: R10.30 Lower abdominal pain, unspecified (principal); Z87.442 Personal history of urinary calculi; Z53.21 Procedure and treatment not carried out due to patient leaving prior to being seen by health care provider
CPT/HCPCS: 99281

== ENCOUNTER 2017-02-07 10:28 | Emergency (ER) | payer MEDICAID, OTHER ==
[~2017-02-07] VITALS: Ht 160 cm; Wt 72.5 kg
[2017-02-07 10:29] VITALS: BP 129/75; PULSE 109; RESP 20; TEMP 98.1; O2SAT 99
[2017-02-07 10:43] VITALS: BP 124/83; PULSE 103; RESP 18; O2SAT 98
[2017-02-07] MEDS ORDERED: birth control (10:43)
[2017-02-07] MEDS ORDERED: ONDANSETRON HCL 4 MG/2 ML VIAL IV PUSH ONE (11:00)
[2017-02-07] MEDS ORDERED: KETOROLAC TROMETHAMINE 30 MG/ML (IVP) VIAL IV PUSH ONE (11:00)
[2017-02-07 11:27] LABS: AUTOMATED NEUTROPHIL # 7.2 TH/MM3 (1.8-7.7); BASOPHIL # 0.1 TH/MM3 (0-0.2); BASOPHIL % 0.7 % (0.0-2.0); EOSINOPHIL # 0.1 TH/MM3 (0-0.4); EOSINOPHIL % 1.2 % (0.0-4.0); HEMATOCRIT 42.9 % (35.0-46.0); HEMO FLAGS DIFF FINAL; LYMPHOCYTE # 3.1 TH/MM3 (1.0-4.8); MEAN CELL VOLUME 96.5 FL (80.0-100.0); MEAN CORPUSCULAR HEMOGLOBIN 33.3 PG (27.0-34.0); MEAN CORPUSCULAR HGB CONC 34.6 % (32.0-36.0); MONO % 4.5 % (0.0-8.0); NEUT % 65.6 % (16.0-70.0); PLATELET COUNT 295 TH/MM3 (150-450); RED BLOOD COUNT 4.45 MIL/MM3 (4.00-5.30); RED CELL DISTRIBUTION WIDTH 12.7 % (11.6-17.2); WHITE BLOOD COUNT 10.9 TH/MM3 (4.0-11.0)
[2017-02-07 11:50] LABS: BLOOD, URINE MOD (NEG); GLUCOSE,URINE NEG (NEG); KETONE, URINE NEG (NEG); NITRITE,URINE NEG (NEG); PH, URINE 6.5 (5.0-8.5); URINE COLOR YELLOW (YELLW/STRAW)
[2017-02-07 11:51] LABS: BICARBONATE 21.8 MEQ/L (21.0-32.0)
[2017-02-07 12:01] LABS: MUCUS URINE FEW /lpf (OCC)
[2017-02-07 12:02] LABS: COMMENT (UR) CULT NOT INDICATED; CULTURE IF INDICATED CULT NOT INDICATED; RBC, URINE 100-200 /hpf (0-3)
--- NOTE | 2017-02-07 12:05 | RADRPT ---
EXAM DATE/TIME: 02/07/2017 11:29 [place] COMPARISON: No previous studies available for comparison. INDICATIONS : Lower Abdominal pain, history of kidney stones MEDICAL HISTORY : Renal calculi. SURGICAL HISTORY : Renal stent placement ENCOUNTER: Initial ACUITY: 1 day PAIN SCORE: 8/10 LOCATION: Right flank FINDINGS: There is a 15 mm right mid to calculus. A right ureteral stent is present. The proximal pigtail is me dial to the stone. Distal pigtail projects over the urinary bladder. I don't see a ureteral stone. Nonobstructive bowel gas pattern. Cholecystectomy clips are noted. CONCLUSION: Large right mid zone renal calculus. Stent in place as above. Paresh Castaneda MD on February 07, 2017 at 12:02 Board Certified Radiologist. This report was verified electronically.
[2017-02-07] MEDS ORDERED: NAPR500T2 PO (12:21)
[2017-02-07] MEDS ORDERED: PERC5TAB12 PO (12:21)
--- NOTE | 2017-02-07 12:21 | PD ---
HPI Chief Complaint: Complaint Time Seen by Provider: 10:40 Travel History International Travel<30 days: No Contact w/Intl Traveler<30days: No Traveled to known affect area: No History of Present Illness HPI 26-year-old with history of renal stones, previous surgical extraction, now with stent placed in the right kidney on January 20 for renal stone, presents complaining of pelvic discomfort, hematuria, nausea. No fever or chills. Is in a processing follow-up with Dr. Ramírez, delayed because of insurance reasons. Currently medicaid in progress. Completed antibiotics. No other complaints. History Past Medical History Narrative Medical Renal stones LMP: 01/30/2017 Social History Alcohol Use: No Tobacco Use: Yes Allergies-Medications (Allergen,Severity, Reaction): Coded Allergies: Penicillins (Verified Allergy, Unknown, Rash, 02/07/17) Reported Meds & Prescriptions Reported Meds & Active Scripts Active Reported [ control ] Review of Systems Except as stated in HPI: all other systems reviewed are Neg Physical Exam Narrative GENERAL: 26-year-old woman, uncomfortable but nontoxic. SKIN: Focused skin assessment warm/dry. CARDIOVASCULAR: Regular rate and rhythm. No murmur appreciated. RESPIRATORY: No accessory muscle use. Clear to auscultation. Breath sounds equal bilaterally. GASTROINTESTINAL: Abdomen soft, non-tender, nondistended. Hepatic and splenic margins not palpable. MUSCULOSKELETAL: No obvious deformities. No clubbing. No cyanosis. No edema. NEUROLOGICAL: Awake and alert. No obvious cranial nerve deficits. Motor grossly within normal limits. Normal speech. PSYCHIATRIC: Anxious, tearful at times. Data Data Last Documented VS Vital Signs Date Time Temp Pulse Resp B/P (MAP) Pulse Ox O2 Delivery O2 Flow Rate FiO2 02/07/17 10:43 103 18 124/83 (97) 98 Room Air 02/07/17 10:29 98.1 Orders Orders Urinalysis - C+S If Indicated (02/07/17 10:50) Abdomen, Kub Only (02/07/17 ) Iv Access Insert/Monitor (02/07/17 10:50) Ketorolac Inj (Toradol Inj) (02/07/17 11:00) Ondansetron Inj (Zofran Inj) (02/07/17 11:00) Basic Metabolic Panel (Bmp) (11/19/17 10:50) Complete Blood Count With Diff (02/07/17 10:50) Labs Laboratory Tests Test 02/07/17 11:00 White Blood Count 10.9 TH/MM3 Red Blood Count 4.45 MIL/MM3 Hemoglobin 14.8 GM/DL Hematocrit 42.9 % Mean Corpuscular Volume 96.5 FL Mean Corpuscular Hemoglobin 33.3 PG Mean Corpuscular Hemoglobin Concent 34.6 % Red Cell Distribution Width 12.7 % Platelet Count 295 TH/MM3 Mean Platelet Volume 7.1 FL Neutrophils (%) (Auto) 65.6 % Lymphocytes (%) (Auto) 28.0 % Monocytes (%) (Auto) 4.5 % Eosinophils (%) (Auto) 1.2 % Basophils (%) (Auto) 0.7 % Neutrophils # (Auto) 7.2 TH/MM3 Lymphocytes # (Auto) 3.1 TH/MM3 Monocytes # (Auto) 0.5 TH/MM3 Eosinophils # (Auto) 0.1 TH/MM3 Basophils # (Auto) 0.1 TH/MM3 CBC Comment DIFF FINAL Differential Comment Urine Color YELLOW Urine Turbidity HAZY Urine pH 6.5 Urine Specific [place] 1.013 Urine Protein 100 mg/dL Urine Glucose (UA) NEG mg/dL Urine Ketones NEG mg/dL Urine Occult Blood MOD Urine Nitrite NEG Urine Bilirubin NEG Urine Urobilinogen LESS THAN 2.0 MG/DL Urine Leukocyte Esterase MOD Urine RBC 100-200 /hpf Urine WBC 6-8 /hpf Urine Squamous Epithelial Cells 6-8 /hpf Urine Mucus FEW /lpf Microscopic Urinalysis Comment CULT NOT INDICATED Blood Urea Nitrogen 15 MG/DL Creatinine 1.07 MG/DL Random Glucose 158 MG/DL Calcium Level 9.4 MG/DL Sodium Level 137 MEQ/L Potassium Level 4.0 MEQ/L Chloride Level 106 MEQ/L Carbon Dioxide Level 21.8 MEQ/L Anion Gap 9 MEQ/L Estimat Glomerular Filtration Rate 62 ML/MIN [facility] Medical Decision Making Medical Screen Exam Complete: Yes Emergency Medical Condition: Yes Interpretation(s) LABS: CBC unremarkable. BMP were chronic 1.07 UA: Significant hematuria. KUB: Large right mid zone renal calculus. Stent in place. Differential Diagnosis Pain from renal stone, renal stone, infection, other Narrative Course Medical decision making This 26-year-old woman who presents to the emergency department complaining of pain from renal stent. She needs follow-up with urologist. I did speak with our financial counselor here to make sure to having him to facilitate her outpatient follow-up. Diagnosis Primary Impression: Renal calculus, right Additional Instructions: Continue medications as prescribed. Follow-up with Dr. Ramírez at the first available appointment. Return to the emergency department for any new or worsening symptoms. Med/Other Pt SpecificInfo: Prescription(s) given Scripts Naproxen (Naproxen) 500 Mg Tab 500 MG PO BID, #20 TAB 0 Refills Prov: Ej Negron MD 02/07/17 Oxycodone-Acetaminophen (Percocet) 5-325 mg Tab 1-2 TAB PO Q6HR Y for PAIN, #30 TAB 0 Refills Prov: Ej Negron MD 02/07/17 Disposition: 01 DISCHARGE HOME Condition: Stable Ej Negron MD Feb 07, 2017 12:21
[2017-02-07] MEDS ORDERED: MORPHINE SULFATE 4 MG/ML INJ IV PUSH ONE (12:45)
== END 2017-02-07 13:24 | disposition home or self-care (01) ==
LOC: NEPE 10:28
DX: N20.0 Calculus of kidney (principal); R31.9 Hematuria, unspecified; Z72.0 Tobacco use; Z88.0 Allergy status to penicillin
CPT/HCPCS: 74000; 80048; 81001; 85025; 96374; 96375; 99284; J1885; J2270; J2405

== ENCOUNTER 2017-02-15 23:46 | Inpatient (IN) | payer MEDICAID, OTHER ==
[~2017-02-15] VITALS: Ht 160 cm; Wt 78.0 kg
[~2017-02-15 23:46] MED LIST changes: +NAPR500T2 PO; -TAMS5CAP PO; +birth control
[2017-02-15 23:48] VITALS: BP 119/72; PULSE 98; RESP 16; TEMP 97.8; O2SAT 99
[2017-02-16] VITALS (9 sets, daily range): BP systolic 101–116; BP diastolic 56–72; PULSE 67–87; RESP 14–19; TEMP 96.3–98.4; O2SAT 96–99
--- NOTE | 2017-02-16 01:03 | PD ---
HPI Chief Complaint: Flank/Kidney Pain Time Seen by Provider: 01:02 Travel History International Travel<30 days: No Contact w/Intl Traveler<30days: No Traveled to known affect area: No History of Present Illness HPI The patient is a 26 year old female who presents to the [facility] emergency department with a history bilateral flank pain that began yesterday. She denies having any fevers. She has had nausea without vomiting. She reports that she has had chills. She is having dysuria with hematuria. She has a history of recently being diagnosed with kidney stones. She reports that initially she was seen in an emergency department in [place] for treatment, however as she was uninsured she was unable to follow-up with a doctor. She reports that she then came to this facility. She reports that she was admitted with intractable pain and an infection. She was instructed to follow-up with the urologist that saw her in the hospital. She reports that a right ureteral stent was placed. She reports that the pain from the stent is worse than the stone itself. However now she is concerned that she may have a recurrent infection. She has an appointment with Dr. Ramírez scheduled for 03/24. She denies having any cough, congestion, neck pain, chest pain, shortness of breath , abdominal pain, diarrhea, or neurologic symptoms. LMP: 01/27/17 [facility] Past Medical History Narrative Medical Patient's past medical history is significant for kidney stone. Kidney Stones: Yes (MULTIPLE) Past Surgical History Narrative Surgical The patient's past surgical history is significant for cholecystectomy, ureteral stent on right. Cholecystectomy: Yes Other Surgery: Yes (kidney stent right ) Social History Alcohol Use: No Tobacco Use: Yes Substance Use: Yes (marijuana) Allergies-Medications (Allergen,Severity, Reaction): Coded Allergies: Penicillins (Verified Allergy, Unknown, Rash, 02/15/17) Reported Meds & Prescriptions Reported Meds & Active Scripts Active Reported [ control ] Narrative Medication aspirin. Review of Systems Except as stated in HPI: all other systems reviewed are Neg General / Constitutional: Positive: Chills, No: Fever Eyes: No: Visual changes HENT: No: Headaches Cardiovascular: No: Chest Pain or Discomfort Respiratory: No: Shortness of Breath Gastrointestinal: Positive: Nausea, No: Vomiting, Diarrhea, Abdominal Pain Genitourinary: Positive: Dysuria, Hematuria, Flank Pain (bilateral) Musculoskeletal: No: Pain Skin: No Rash Neurologic: No: Weakness Psychiatric: No: Depression Endocrine: No: Polydipsia Hematologic/Lymphatic: No: Easy Bruising Physical Exam Narrative General: The patient is a well-developed well-nourished female, uncomfortable appearing on examination. Head and Neck exam: Head is normocephalic atraumatic. Eyes: EOMI, pupils are equal round and reactive to light. Nose: Midline septum with pink mucous membranes Mouth: Dentition unremarkable. Moist mucus membranes. Posterior oropharynx is not erythematous. No tonsillar hypertrophy. Uvula midline. Airway patent. Neck: No palpable lymphadenopathy. No nuchal rigidity. No thyromegaly. Cardiovascular: Regular rate and rhythm without murmurs, gallops, or rubs. Lungs: Clear to auscultation bilaterally. No wheezes, rhonchi, or rales. Abdomen: Soft, with reported suprapubic abdominal discomfort on palpation, no other tenderness on palpation of the other quadrants of the abdomen. No guarding, rebound, or rigidity. Normal bowel sounds are audible. No tenderness on palpation of McBurney's point. Negative Villalba's sign. Extremities: No clubbing, cyanosis, or edema. 2+ pulses in all 4 extremities. No calf tenderness on palpation. Back: No spinous process tenderness to palpation. Bilateral CVA tenderness on palpation worse on the right compared to the left. Neurologic Exam: Grossly nonfocal. Skin Exam: No rash noted. Intact skin that is warm and dry. Data Data Last Documented VS Vital Signs Date Time Temp Pulse Resp B/P (MAP) Pulse Ox O2 Delivery O2 Flow Rate FiO2 02/16/17 04:39 14 02/16/17 04:30 75 116/68 (84) 98 Room Air 02/15/17 23:48 97.8 Orders Orders Complete Blood Count With Diff (02/16/17 01:34) Comprehensive Metabolic Panel (02/16/17 01:34) C-Reactive Protein (Crp) (02/16/17 01:34) Lipase (02/16/17 01:34) Urinalysis - C+S If Indicated (02/16/17 01:34) Iv Access Insert/Monitor (02/16/17 01:34) Ecg Monitoring (02/16/17 01:34) Oximetry (02/16/17 01:34) Ed Urine Pregnancytest Poc (02/16/17 01:34) Sodium Chlor 0.9% 1000 Ml Inj (Ns 1000 M (02/16/17 02:15) Ondansetron Inj (Zofran Inj) (02/16/17 02:15) Ketorolac Inj (Toradol Inj) (02/16/17 02:15) Sodium Chlor 0.9% 1000 Ml Inj (Ns 1000 M (02/16/17 04:30) Oxycodone-Acetamin 5-325 Mg (Percocet (02/16/17 05:15) Urine Culture (02/16/17 04:55) Ceftriaxone Inj (Rocephin Inj) (02/16/17 05:45) Admit Order (Ed Use Only) (02/16/17 05:35) Labs Laboratory Tests Test 02/16/17 01:50 02/16/17 04:55 White Blood Count 13.0 TH/MM3 Red Blood Count 4.13 MIL/MM3 Hemoglobin 13.7 GM/DL Hematocrit 39.7 % Mean Corpuscular Volume 96.2 FL Mean Corpuscular Hemoglobin 33.3 PG Mean Corpuscular Hemoglobin Concent 34.6 % Red Cell Distribution Width 12.6 % Platelet Count 320 TH/MM3 Mean Platelet Volume 7.1 FL Neutrophils (%) (Auto) 52.4 % Lymphocytes (%) (Auto) 38.0 % Monocytes (%) (Auto) 6.3 % Eosinophils (%) (Auto) 2.9 % Basophils (%) (Auto) 0.4 % Neutrophils # (Auto) 6.8 TH/MM3 Lymphocytes # (Auto) 4.9 TH/MM3 Monocytes # (Auto) 0.8 TH/MM3 Eosinophils # (Auto) 0.4 TH/MM3 Basophils # (Auto) 0.1 TH/MM3 CBC Comment DIFF FINAL Differential Comment Blood Urea Nitrogen 19 MG/DL Creatinine 1.17 MG/DL Random Glucose 110 MG/DL Total Protein 7.3 GM/DL Albumin 3.6 GM/DL Calcium Level 9.0 MG/DL Alkaline Phosphatase 53 U/L Aspartate Amino Transf (AST/SGOT) 10 U/L Alanine Aminotransferase (ALT/SGPT) 16 U/L Total Bilirubin 0.2 MG/DL Sodium Level 141 MEQ/L Potassium Level 3.4 MEQ/L Chloride Level 111 MEQ/L Carbon Dioxide Level 22.9 MEQ/L Anion Gap 7 MEQ/L Estimat Glomerular Filtration Rate 56 ML/MIN C-Reactive Protein 0.87 MG/DL Lipase 242 U/L Urine Color LIGHT-RED Urine Turbidity CLOUDY Urine pH 6.0 Urine Specific [place] 1.025 Urine Protein 300 mg/dL Urine Glucose (UA) NEG mg/dL Urine Ketones NEG mg/dL Urine Occult Blood LARGE Urine Nitrite NEG Urine Bilirubin NEG Urine Urobilinogen LESS THAN 2.0 MG/DL Urine Leukocyte Esterase LARGE Urine RBC /hpf Urine WBC /hpf Urine Squamous Epithelial Cells 17 /hpf Urine Amorphous Sediment RARE Urine Bacteria MOD /hpf Urine Hyaline Casts 29 /lpf Urine Mucus MANY /lpf Microscopic Urinalysis Comment CULTURE INDICATED MDM Medical Decision Making Medical Screen Exam Complete: Yes Emergency Medical Condition: Yes Medical Record Reviewed: Yes Differential Diagnosis Pyelonephritis, versus kidney stone, versus sepsis, versus intractable pain Narrative Course During the course of the patients emergency department visit, the patients history, examination, and differential diagnosis were reviewed with the patient. The patient was placed on a swimming pool installer with oximetry and frequent blood pressure monitoring. The patient had IV access obtained and blood work sent for analysis. The patient was initially provided Toradol for pain, Zofran for nausea, normal saline 1 L IV fluid bolus. The patients laboratory studies were reviewed and remarkable for a white count of 13, hemoglobin 13.7, platelets 320 with a normal differential. The patient' s white count is increased compared to her prior evaluation on February 07. CMP is remarkable for a potassium of 3.4, chloride 111, BUN 19, creatinine 1.17 which is slightly worsened compared to previously, glucose 110, AST 10, C- reactive protein 0.87, lipase 242, urinalysis shows large leukocyte esterase, innumerable rbc's, innumerable WBCs, moderate bacteria. Culture was indicated. The patient was given Rocephin 1 g IV. The patient continued to have pain and was given Percocet 10 mg by mouth. The patients results were discussed with the patient, including the plan of care. I explained that further testing and/ or monitoring is indicated based on the patients history, examination, and/ or laboratory findings. Therefore, I recommended admission for additional evaluation. The patient expressed understanding and was agreeable with this plan. The patient was admitted to the hospital in stable condition and [facility] Physician Communication Physician Communication The patient's case including history, pertinent physical examination findings, and laboratory studies were discussed with Dr. Emerson. It was agreed that the patient would be admitted to the [facility] service. Diagnosis Primary Impression: Complicated UTI (urinary tract infection) Additional Impressions: Leukocytosis Qualified Codes: D72.829 - Elevated white blood cell count, unspecified Renal calculus, right Admitting Information Admitting Physician Requests: Admit Marilyn Esparza MD Feb 16, 2017 01:03
[2017-02-16 02:07] LABS: AUTOMATED NEUTROPHIL # 6.8 TH/MM3 (1.8-7.7); BASOPHIL # 0.1 TH/MM3 (0-0.2); BASOPHIL % 0.4 % (0.0-2.0); EOSINOPHIL # 0.4 TH/MM3 (0-0.4); EOSINOPHIL % 2.9 % (0.0-4.0); HEMATOCRIT 39.7 % (35.0-46.0); HEMO FLAGS DIFF FINAL; LYMPHOCYTE # 4.9 TH/MM3 (1.0-4.8); MEAN CELL VOLUME 96.2 FL (80.0-100.0); MEAN CORPUSCULAR HEMOGLOBIN 33.3 PG (27.0-34.0); MEAN CORPUSCULAR HGB CONC 34.6 % (32.0-36.0); MONO % 6.3 % (0.0-8.0); NEUT % 52.4 % (16.0-70.0); PLATELET COUNT 320 TH/MM3 (150-450); RED BLOOD COUNT 4.13 MIL/MM3 (4.00-5.30); RED CELL DISTRIBUTION WIDTH 12.6 % (11.6-17.2)
[2017-02-16] MEDS ORDERED: KETOROLAC TROMETHAMINE 30 MG/ML (IVP) VIAL IV PUSH ONE (02:15)
[2017-02-16] MEDS ORDERED: SODIUM CHLOR 0.9% 1000 ML INJ 1,000 ML IV ONE ×2 (02:15→04:30)
[2017-02-16] MEDS ORDERED: ONDANSETRON HCL 4 MG/2 ML VIAL IV ONE (02:15)
[2017-02-16 02:32] LABS: ALT (GPT) 16 U/L (10-53); ANION GAP 7 MEQ/L (5-15); AST (GOT) 10 U/L (15-37); BICARBONATE 22.9 MEQ/L (21.0-32.0); BLOOD UREA NITROGEN 19 MG/DL (7-18); CHLORIDE 111 MEQ/L (98-107); GLOMERULAR FILTRATION RATE 56 ML/MIN (>89); POTASSIUM 3.4 MEQ/L (3.5-5.1); SODIUM (NA) 141 MEQ/L (136-145)
[2017-02-16 02:34] LABS: ALKALINE PHOSPHATASE 53 U/L (45-117); TOTAL BILIRUBIN ADULT 0.2 MG/DL (0.2-1.0)
[2017-02-16] MEDS ORDERED: oxyCODONE/ACETAMINOPHEN 5 MG/325 MG TAB PO ONE (05:15)
[2017-02-16 05:20] LABS: BACTERIA, URINE MOD /hpf; BLOOD, URINE LARGE (NEG); COMMENT (UR) CULTURE INDICATED; CULTURE IF INDICATED CULTURE INDICATED; GLUCOSE,URINE NEG (NEG); HYALINE CAST, URINE 29 /lpf (RARE); KETONE, URINE NEG (NEG); MUCUS URINE MANY /lpf (OCC); NITRITE,URINE NEG (NEG); SQUAMOUS EPITHELIAL CELL URINE 17 /hpf (0-5); URINE COLOR LIGHT-RED (YELLW/STRAW)
[2017-02-16] MEDS ORDERED: cefTRIAXone INJ 1,000 MG in SODIUM CHLORIDE 0.9% INJ 100 ML IV ONE (05:45)
[2017-02-16] MEDS ORDERED: SODIUM CHLOR 0.9% 1000 ML INJ 1,000 ML IV SCH (05:51)
[2017-02-16] MEDS ORDERED: BISACODYL 10 MG SUPP RECTAL PRN (06:00)
[2017-02-16] MEDS ORDERED: SENNOSIDES 8.6 MG TAB PO PRN (06:00)
[2017-02-16] MEDS ORDERED: NALOXONE HCL 0.4 MG/ML AMP IV PUSH PRN (06:00)
[2017-02-16] MEDS ORDERED: ACETAMINOPHEN 325 MG TAB PO PRN (06:00)
[2017-02-16] MEDS ORDERED: MORPHINE SULFATE 2 MG/ML INJ IV PUSH PRN (06:00)
[2017-02-16] MEDS ORDERED: POTASSIUM CHLORIDE 20 MEQ CONTROLLED RELEASE TAB PO ONE (06:00)
[2017-02-16] MEDS ORDERED: LACTULOSE SYRUP 20 GM/30 ML CUP PO PRN (06:00)
[2017-02-16] MEDS ORDERED: MAGNESIUM HYDROXIDE SUSP 30 ML CUP PO PRN (06:00)
--- NOTE | 2017-02-16 07:55 | HHI.HP ---
[facility] No Primary Care Physician Admission Diagnosis Pyleonephritis, ureteral stone with stent in place Diagnoses: Chief Complaint: Flank pain with dysuria and hematuria Travel History International Travel<30 Days: No Contact w/Intl Traveler <30 Da: No Traveled to Known Affected Are: No History of Present Illness Patient is a very pleasant 26-year-old female who was seen here about 3 weeks ago secondary to flank pain. Associated with dysuria with gross hematuria. She was admitted then and was seen by urologist and, right ureteral stent was placed by urology was Dr. Ramírez last January 20. was discharged on ciprofloxacin. Patient states that still had on and off hematuria and flank pain. Was seen here in February 07 and emergency room because of increasing pain. She was prescribed Percocet and advised to follow-up. She came back here late last evening because of increasing pain. Denies any fever however persistent nausea with sweating. Pain was so sharp with dysuria on and off hematuria. And finally came here because of worsening pain and was admitted for further evaluation. Prior to this patient states she had a right kidney stone removal in April per patient she was supposed to have a preop evaluation on March 24 for possible ESWL procedure by urology Review of Systems Constitutional: COMPLAINS OF: Diaphoretic episodes Endocrine: COMPLAINS OF: Abnorml menstrual pattern, DENIES: Heat/cold intolerance, Polydipsia, Polyuria, Polyphagia Eyes: DENIES: Blurred vision, Diplopia, Eye inflammation, Eye pain, Vision loss , Photosensitivity, Double Vision Ears, nose, mouth, throat: DENIES: Tinnitus, Hearing loss, Vertigo, Nasal discharge, Oral lesions, Throat pain, Hoarseness, Ear Pain, Running Nose, Epistaxis, Sinus Pain, Toothache, Odynophagia Respiratory: DENIES: Apneas, Cough, Snoring, Wheezing, Hemoptysis, Sputum production, Shortness of breath Cardiovascular: DENIES: Chest pain, Palpitations, Syncope, Dyspnea on Exertion , PND, Lower Extremity Edema, Orthopnea, Claudication Gastrointestinal: COMPLAINS OF: Nausea Genitourinary: COMPLAINS OF: Hematuria, Dysuria Musculoskeletal: DENIES: Joint pain, Muscle aches, Stiffness, Joint Swelling, Back pain, Neck pain Integumentary: DENIES: Abnormal pigmentation, Pruritus, Rash, Nail changes, Breast masses, Breast skin changes, Nipple discharge Hematologic/lymphatic: DENIES: Bruising, Lymphadenopathy Immunologic/allergic: DENIES: Eczema, Urticaria Neurologic: DENIES: Abnormal gait, Headache, Localized weakness, Paresthesias, Seizures, Speech Problems, Tremor, Poor Balance Psychiatric: DENIES: Anxiety, Confusion, Mood changes, Depression, Hallucinations, Agitation, Suicidal Ideation, Homicidal Ideation, Delusions Past Family Social History Past Medical History History of recurrent renal calculus. Status post stent placed Urinary tract infection secondary to obstructive uropathy Past Surgical History Right ureteral stent placement January 20 History of Cholecystectomy Reported Medications Percocet when necessary for pain Allergies: Coded Allergies: Penicillins (Verified Allergy, Unknown, Rash, 02/15/17) Family History Mother has history of hypertension and diabetes type 2 Social History Smokes half pack per day Denies alcohol use History of smoking weed -in the past last use was over 8 years ago Physical Exam Vital Signs Vital Signs Date Time Temp Pulse Resp B/P (MAP) Pulse Ox O2 Delivery O2 Flow Rate FiO2 02/16/17 04:39 14 02/16/17 04:30 75 14 116/68 (84) 98 Room Air 02/16/17 02:03 98 Room Air 02/16/17 01:15 87 16 107/63 (78) 99 Room Air 02/15/17 23:48 97.8 98 16 119/72 (88) 99 Room Air Physical Exam GENERAL: well-developed patient, in no apparent distress. SKIN: No rashes, ecchymoses or lesions. Cool and dry. HEAD: Atraumatic. Normocephalic. No temporal or scalp tenderness. EYES: Pupils equal round and reactive. Extraocular motions intact. No scleral icterus. ENT: Nose without bleeding, Throat without erythema, tonsillar hypertrophy or exudate. . Airway patent. NECK: Trachea midline. No JVD or lymphadenopathy. Supple, nontender, no meningeal signs. CARDIOVASCULAR: Regular rate and rhythm without murmurs, gallops, or rubs. RESPIRATORY: Clear to auscultation. Breath sounds equal bilaterally. No wheezes , rales, or rhonchi. GASTROINTESTINAL: Abdomen soft, non-tender, mild right CVA tenderness MUSCULOSKELETAL: Extremities without clubbing, cyanosis, or edema. No joint tenderness, effusion, or edema noted. No calf tenderness. Negative Homans sign bilaterally. NEUROLOGICAL: Awake and alert. Cranial nerves II through XII intact. Motor and sensory grossly within normal limits. Five out of 5 muscle strength in all muscle groups. Normal speech. Laboratory Laboratory Tests Test 02/16/17 01:50 02/16/17 04:55 White Blood Count 13.0 Red Blood Count 4.13 Hemoglobin 13.7 Hematocrit 39.7 Mean Corpuscular Volume 96.2 Mean Corpuscular Hemoglobin 33.3 Mean Corpuscular Hemoglobin Concent 34.6 Red Cell Distribution Width 12.6 Platelet Count 320 Mean Platelet Volume 7.1 Neutrophils (%) (Auto) 52.4 Lymphocytes (%) (Auto) 38.0 Monocytes (%) (Auto) 6.3 Eosinophils (%) (Auto) 2.9 Basophils (%) (Auto) 0.4 Neutrophils # (Auto) 6.8 Lymphocytes # (Auto) 4.9 Monocytes # (Auto) 0.8 Eosinophils # (Auto) 0.4 Basophils # (Auto) 0.1 CBC Comment DIFF FINAL Differential Comment Blood Urea Nitrogen 19 Creatinine 1.17 Random Glucose 110 Total Protein 7.3 Albumin 3.6 Calcium Level 9.0 Alkaline Phosphatase 53 Aspartate Amino Transf (AST/SGOT) 10 Alanine Aminotransferase (ALT/SGPT) 16 Total Bilirubin 0.2 Sodium Level 141 Potassium Level 3.4 Chloride Level 111 Carbon Dioxide Level 22.9 Anion Gap 7 Estimat Glomerular Filtration Rate 56 C-Reactive Protein 0.87 Lipase 242 Urine Color LIGHT-RED Urine Turbidity CLOUDY Urine pH 6.0 Urine Specific [place] 1.025 Urine Protein 300 Urine Glucose (UA) NEG Urine Ketones NEG Urine Occult Blood LARGE Urine Nitrite NEG Urine Bilirubin NEG Urine Urobilinogen LESS THAN 2.0 Urine Leukocyte Esterase LARGE Urine RBC Urine WBC Urine Squamous Epithelial Cells 17 Urine Amorphous Sediment RARE Urine Bacteria MOD Urine Hyaline Casts 29 Urine Mucus MANY Microscopic Urinalysis Comment CULTURE INDICATED Date/Time Source Procedure Growth Status 02/16/17 04:55 Urine Clean Catch Urine Culture Pending Received Result Diagram: 02/16/17 01502/16/17 015 Caprini VTE Risk Assessment Caprini VTE Risk Assessment: No/Low Risk (score <= 1) Caprini Risk Assessment Model Point Value = 1 Point Value = 2 Point Value = 3 Point Value = 5 Age 41-60 Minor surgery BMI > 25 kg/m2 Swollen legs Varicose veins or History of unexplained or recurrent spontaneous Oral contraceptives or hormone replacement Sepsis (< 1 month) Serious lung disease, including pneumonia (< 1 month) Abnormal pulmonary function Acute myocardial infarction Congestive heart failure (< 1 month) History of inflammatory bowel disease Medical patient at bed rest Age 61-74 Arthroscopic surgery Major open surgery (> 45 min) Laparoscopic surgery (> 45 min) Malignancy Confined to bed (> 72 hours) Immobilizing plaster cast Central venous access Age >= 75 History of VTE Family history of VTE Factor V Leiden Prothrombin [id number] Lupus anticoagulant Anticardiolipin antibodies Elevated serum homocysteine Heparin-induced thrombocytopenia Other congenital or acquired thrombophilia Stroke (< 1 month) Elective arthroplasty Hip, pelvis, or leg fracture Acute spinal cord injury (< 1 month) Prophylaxis Regimen Total Risk Factor Score Risk Level Prophylaxis Regimen 0-1 Low Early ambulation 2 Moderate Order ONE of the following: *Sequential Compression Device (SCD) *Heparin 5000 units SQ BID 3-4 Higher Order ONE of the following medications: *Heparin 5000 units SQ TID *Enoxaparin/Lovenox 40 mg SQ daily (WT < 150 kg, CrCl > 30 mL/min) *Enoxaparin/Lovenox 30 mg SQ daily (WT < 150 kg, CrCl > 10-29 mL/min) *Enoxaparin/Lovenox 30 mg SQ BID (WT < 150 kg, CrCl > 30 mL/min) AND/OR *Sequential Compression Device (SCD) 5 or more Highest Order ONE of the following medications: *Heparin 5000 units SQ TID (Preferred with Epidurals) *Enoxaparin/Lovenox 40 mg SQ daily (WT < 150 kg, CrCl > 30 mL/min) *Enoxaparin/Lovenox 30 mg SQ daily (WT < 150 kg, CrCl > 10-29 mL/min) *Enoxaparin/Lovenox 30 mg SQ BID (WT < 150 kg, CrCl > 30 mL/min) AND *Sequential Compression Device (SCD) Assessment and Plan Assessment and Plan Patient is a 26-year-old female presenting with recurrent right flank pain persistent hematuria Recurrent Complicated UTI with underlying obstructive uropathy with right ureteral calculus status post right ureteral stent stent placement-January 20, 2017 Start patient on IV fluid hydration.- 125 cc an hour Urology consulted- there was a plan to do an ESWL by urology. Preop clearance was in progress. started on IV Rocephin- started 02/16. Follow culture and sensitivity Dilaudid IV when necessary for pain Keep nothing by mouth for now awaiting urology evaluation Stone analysis if passed. The patient at a young age was told that he she had calcium stones NIKKO- secondary to above IVF as above FF BMP Hypokalemia. give KCL IV bolus IV fluid with potassium incorporation. Follow electrolytes Smoker patient counseled. Early ambulation. SCDs when in bed. Discussed Condition With Patient Physician Certification 2 Midnight Certification Type: Admission for Inpatient Services Order for Inpatient Services The services are ordered in accordance with Medicare regulations or non- Medicare payer requirements, as applicable. In the case of services not specified as inpatient-only, they are appropriately provided as inpatient services in accordance with the 2-midnight benchmark. Estimated LOS (days): 3 days is the estimated time the patient will need to remain in the hospital, assuming treatment plan goals are met and no additional complications. Post-Hospital Plan: Home Mckenna Pang MD Feb 16, 2017 07:55
[2017-02-16] MEDS: SODIUM CHLORIDE 0.9% FLUSH 10 ML FLUSH IV FLUSH SCH ×2 (08:11→21:00)
[2017-02-16] MEDS ORDERED: POTASSIUM CHLOR 10 MEQ PREMIX 100 ML IV ONE (08:30)
--- NOTE | 2017-02-16 08:58 | MB ---
cc: JET SANTANA DATE OF CONSULTATION: 02/16/2017 HISTORY OF PRESENT ILLNESS Ms. Hansen is a 26-year-old female with a known history of renal calculi. She has had these in the past. She underwent cystoscopy with right ureteral stent placement in the past by Dr. Ramírez. She has been having on and off flank pain during this time and has a lot a stent irritation. She is noted to have a 1.5 cm mid right ureteral calculus for which the stent was placed and appeared to be in good position. She notes some nausea at times. Denies fever but notes occasional chills. She notes intermittent gross hematuria which is consistent with having a stent in place. PAST MEDICAL HISTORY History of nephrolithiasis and prior UTI. PAST SURGICAL HISTORY 1. Cholecystectomy. 2. Right ureteral stent placement by Dr. Ramírez. MEDICATIONS For current meds please refer to the chart. ALLERGIES She is allergic to PENICILLIN. FAMILY HISTORY Noted for hypertension and diabetes. SOCIAL HISTORY She is a half pack a day smoker. Denies alcohol use. Admits to smoking marijuana in the past. REVIEW OF SYSTEMS Notes right-sided flank pain, hematuria, dysuria, nausea. Denies chest pain or shortness of breath. Denies constipation or diarrhea. Denies gait disturbances or bleeding disorders. Denies skin lesions. Denies joint pain. Denies bruising or lymphadenopathy. Denies eczema or urticaria. Denies anxiety or confusion. Denies tinnitus. Denies blurred vision. PHYSICAL EXAMINATION VITAL SIGNS: At the present time temperature is 97.8, heart rate 98, respiratory rate 16, blood pressure 119/72. GENERAL: A well-developed, well-nourished 26-year-old female in no acute stress. HEENT: Normocephalic, atraumatic. Pupils equal, round, regular and react to light. Extraocular movements intact. NECK: Supple. HEART: Regular rate and rhythm. LUNGS: Clear. ABDOMEN: Soft. Some right-sided tenderness is noted. There is right CVA tenderness noted. : Normal female external genitalia. EXTREMITIES: No evidence of cyanosis, clubbing or edema. NEUROLOGIC: Cranial nerves II through XII are intact. SKIN: There are no lesions identified. PSYCH: Generalized mood. LABORATORY White count 13.0, hemoglobin 13.7, hematocrit 39.7, platelet count 320. Sodium 141, potassium 3.4, chloride 111, CO2 22.9, BUN 19, creatinine 1.1, glucose 110. Urinalysis shows numerous red and white cells. Urine culture is currently pending. IMAGING KUB demonstrates a 1.5 cm right mid calculus, and the ureteral stent in good position. ASSESSMENT This is a 26-year-old female with stent discomfort with a 1.5 cm right renal calculus and possible UTI. PLAN/RECOMMENDATIONS Continue to treat UTI with antibiotics. Check urine culture results. Pain control. Recommend Ditropan for bladder spasms and Pyridium for dysuria. The patient has an appointment to follow-up in the office with Dr. Ramírez to undergo scheduling for extracorporeal shock wave lithotripsy in the near future. Thank you for the consult and allowing me to participate in the care of this patient. Jet DIAZ /8:35 AM /8:43 AM
[2017-02-16] MEDS: OXYBUTYNIN CHLORIDE 5 MG TAB PO SCH ×3 (10:26→23:56)
[2017-02-16] MEDS: HYDROmorphone HCL PF 0.5 MG/0.5 ML SYRINGE IV PUSH PRN ×5 (11:22→23:56)
[2017-02-16] MEDS: PHENAZOPYRIDINE HCL 200 MG TAB PO SCH ×2 (14:40→21:09)
[2017-02-16] MEDS: POTASSIUM CHLORIDE INJ 10 MEQ in DEXT 5%-NACL 0.9% 1000 ML INJ 1,000 ML IV SCH ×3 (14:40→23:57)
[2017-02-16] MEDS: ONDANSETRON HCL 4 MG/2 ML VIAL IVP PRN (23:57)
[2017-02-17] MEDS: HYDROmorphone HCL PF 0.5 MG/0.5 ML SYRINGE IV PUSH PRN ×7 (03:08→21:19)
[2017-02-17 04:50] VITALS: BP 97/68; PULSE 73; RESP 18; TEMP 96.7; O2SAT 98
[2017-02-17] MEDS: PHENAZOPYRIDINE HCL 200 MG TAB PO SCH ×3 (06:25→21:18)
[2017-02-17] MEDS: cefTRIAXone INJ 1,000 MG in SODIUM CHLORIDE 0.9% INJ 100 ML IV SCH (06:26)
[2017-02-17] MEDS: POTASSIUM CHLORIDE INJ 10 MEQ in DEXT 5%-NACL 0.9% 1000 ML INJ 1,000 ML IV SCH ×2 (06:28→16:11)
[2017-02-17 07:40] LABS: AUTOMATED NEUTROPHIL # 3.7 TH/MM3 (1.8-7.7); BASOPHIL % 0.6 % (0.0-2.0); EOSINOPHIL # 0.2 TH/MM3 (0-0.4); EOSINOPHIL % 2.7 % (0.0-4.0); HEMATOCRIT 32.8 % (35.0-46.0); HEMO FLAGS DIFF FINAL; LYMPH % 43.7 % (9.0-44.0); LYMPHOCYTE # 3.5 TH/MM3 (1.0-4.8); MEAN CELL VOLUME 97.7 FL (80.0-100.0); MEAN CORPUSCULAR HEMOGLOBIN 34.2 PG (27.0-34.0); MONO % 7.4 % (0.0-8.0); NEUT % 45.6 % (16.0-70.0); PLATELET COUNT 244 TH/MM3 (150-450); RED BLOOD COUNT 3.36 MIL/MM3 (4.00-5.30); RED CELL DISTRIBUTION WIDTH 12.6 % (11.6-17.2)
[2017-02-17 08:00] VITALS: BP 92/66; PULSE 77; RESP 18; TEMP 97.5; O2SAT 95
[2017-02-17 08:12] LABS: BICARBONATE 21.9 MEQ/L (21.0-32.0); POTASSIUM 4.1 MEQ/L (3.5-5.1)
[2017-02-17] MEDS: SODIUM CHLORIDE 0.9% FLUSH 10 ML FLUSH IV FLUSH SCH ×2 (08:36→21:19)
[2017-02-17] MEDS: OXYBUTYNIN CHLORIDE 5 MG TAB PO SCH ×2 (08:36→15:43)
[2017-02-17 12:00] VITALS: BP 122/83; PULSE 72; RESP 18; TEMP 98.2; O2SAT 100
--- NOTE | 2017-02-17 12:45 | HHI.PR ---
Subjective Remarks F/U: Pyonephritis, ureteral stone with stent in place Patient says her back pain on both sides is better controlled today. She also complains of suprapubic pain. No nausea or vomiting. Able to eat and keep down food. No fever or chills overnight. The patient is however requesting to see Dr. Ramírez and she wants the stent removed. The patient is very upset and she wants surgery done. Objective Vitals Vital Signs Date Time Temp Pulse Resp B/P (MAP) Pulse Ox O2 Delivery O2 Flow Rate FiO2 02/17/17 08:00 97.5 77 18 92/66 (75) 95 02/17/17 04:50 96.7 73 18 97/68 (78) 98 02/16/17 23:50 98.4 67 17 106/72 (83) 98 02/16/17 19:15 96.3 79 16 107/60 (76) 96 02/16/17 16:00 97.6 76 19 113/66 (82) 98 02/16/17 15:45 97.4 69 16 101/56 (71) 99 I/O 02/16/17 02/16/17 02/16/17 02/17/17 02/17/17 02/17/17 07:00 15:00 23:00 07:00 15:00 23:00 Intake Total 2100 ml 580 ml 881 ml 2329 ml Balance 2100 ml 580 ml 881 ml 2329 ml Intake Oral 480 ml 720 ml 480 ml IV Total 2100 ml 100 ml 161 ml 1849 ml # Voids 2 3 4 # Bowel Movements 0 0 0 Result Diagram: 02/17/17 0702/17/17 0700 Objective Remarks GENERAL: well-developed patient, in no apparent distress. CARDIOVASCULAR: Regular rate and rhythm without murmurs, gallops, or rubs. RESPIRATORY: Clear to auscultation. Breath sounds equal bilaterally. No wheezes , rales, or rhonchi. GASTROINTESTINAL: Abdomen soft, non-tender, mild right CVA tenderness MUSCULOSKELETAL: Extremities without clubbing, cyanosis, or edema. No joint tenderness, effusion, or edema noted. No calf tenderness. Negative Homans sign bilaterally. NEUROLOGICAL: Awake and alert. Cranial nerves II through XII intact. Motor and sensory grossly within normal limits. Five out of 5 muscle strength in all muscle groups. Normal speech. A/P Assessment and Plan Patient is a 26-year-old female presenting with recurrent right flank pain persistent hematuria Recurrent Complicated UTI with underlying obstructive uropathy with right ureteral calculus status post right ureteral stent stent placement-January 20, 2017 Continue on IV fluid hydration.- 125 cc an hour Urology consulted- there was a plan to do an ESWL by urology. Patient is requesting to see Dr Ramírez and wants the stent out. Consult Dr Ramírez urology. Continue on IV Rocephin- started 02/16. Follow culture and sensitivity Dilaudid IV when necessary for pain Stone analysis if passed. The patient at a young age was told that he she had calcium stones NIKKO- secondary to above IVF as above FF BMP Hypokalemia Received KCL IV bolus. Monitor lytes and replace as need. IV fluid with potassium incorporation. Follow electrolytes Smoker patient counseled. DVT ppx: Early ambulation. SCDs when in bed. Discussed Condition With Patient, nurse, family, charge nurse, case management Viola Leyva MD Feb 17, 2017 12:45
[2017-02-17 15:00] VITALS: BP 108/66; PULSE 80; RESP 17; TEMP 96.5; O2SAT 96
[2017-02-17] MEDS: ONDANSETRON HCL 4 MG/2 ML VIAL IVP PRN (15:49)
[2017-02-17] MEDS: REMOVE OLD PATCH T-DERMAL SCH (18:15)
[2017-02-17] MEDS ORDERED: ACETAMINOPHEN 325 MG TAB PO PRN (18:15)
[2017-02-17] MEDS: NICOTINE 14 MG/24 HR PATCH T-DERMAL SCH (18:47)
[2017-02-17 20:00] VITALS: BP 114/87; PULSE 69; RESP 18; TEMP 96.6; O2SAT 98
[2017-02-17] MEDS ORDERED: REMOVE OLD PATCH T-DERMAL SCH (21:00)
[2017-02-17] MEDS: SODIUM CHLORIDE 0.9% FLUSH 10 ML FLUSH IV FLUSH PRN (21:19)
[2017-02-18] VITALS: BP 137/63; PULSE 93; RESP 16; TEMP 99.3; O2SAT 93
[2017-02-18] MEDS: HYDROmorphone HCL PF 0.5 MG/0.5 ML SYRINGE IV PUSH PRN ×4 (00:32→11:03)
[2017-02-18] MEDS: POTASSIUM CHLORIDE INJ 10 MEQ in DEXT 5%-NACL 0.9% 1000 ML INJ 1,000 ML IV SCH ×2 (00:32→10:04)
[2017-02-18] MEDS: SODIUM CHLORIDE 0.9% FLUSH 10 ML FLUSH IV FLUSH PRN ×2 (00:32→04:16)
[2017-02-18] MEDS: OXYBUTYNIN CHLORIDE 5 MG TAB PO SCH ×2 (00:32→07:43)
[2017-02-18] MEDS: cefTRIAXone INJ 1,000 MG in SODIUM CHLORIDE 0.9% INJ 100 ML IV SCH (05:30)
[2017-02-18] MEDS: PHENAZOPYRIDINE HCL 200 MG TAB PO SCH (05:30)
[2017-02-18] MEDS: SODIUM CHLORIDE 0.9% FLUSH 10 ML FLUSH IV FLUSH SCH (07:43)
[2017-02-18] MEDS: ONDANSETRON HCL 4 MG/2 ML VIAL IVP PRN (07:48)
[2017-02-18 08:00] VITALS: BP 98/82; PULSE 82; RESP 18; TEMP 97.2; O2SAT 97
[2017-02-18] MEDS: REMOVE OLD PATCH T-DERMAL SCH (09:00)
[2017-02-18] MEDS: NICOTINE 14 MG/24 HR PATCH T-DERMAL SCH (10:03)
[2017-02-18 12:00] VITALS: BP 118/66; PULSE 81; RESP 18; TEMP 96.8; O2SAT 96
[2017-02-18] MEDS ORDERED: NAPR500 PO (12:15)
[2017-02-18] MEDS ORDERED: PERC5TAB12 PO (12:15)
--- NOTE | 2017-02-18 12:18 | HHI.PR ---
Subjective Patient symptoms today Right flank pain managed Objective Vital Signs Vital Signs Date Time Temp Pulse Resp B/P (MAP) Pulse Ox O2 Delivery O2 Flow Rate FiO2 02/18/17 08:00 97.2 82 18 98/82 (87) 97 02/18/17 00:00 99.3 93 16 137/63 (87) 93 02/17/17 20:00 96.6 69 18 114/87 (96) 98 02/17/17 15:00 96.5 80 17 108/66 (80) 96 Intake & Output 02/18/17 02/18/17 07:00 19:00 Intake Total 3409 ml Balance 3409 ml Intake Oral 900 ml IV Total 2509 ml # Voids 7 # Bowel Movements 0 Result Diagram: 02/17/17 0702/17/17 0700 Objective Remarks Abdomen soft, nondistended, nontender No CVA tenderness Medications and IVs Current Medications Medications (Trade) Dose Ordered Sig/Nichole Route Start Time Stop Time Status Last Admin Ceftriaxone Sodium 1000 mg/ Sodium Chloride 100 ml @ 200 mls/hr Q24H IV 02/17/17 06:00 02/18/17 05:30 (NS Flush) 2 ml UNSCH PRN IV FLUSH 02/16/17 06:00 02/18/17 04:16 (NS Flush) 2 ml BID IV FLUSH 02/16/17 09:00 02/18/17 07:43 (Tylenol) 650 mg Q4H PRN PO 02/16/17 06:00 02/16/17 23:56 (Zofran Inj) 4 mg Q6H PRN IVP 02/16/17 06:00 02/18/17 07:48 (Narcan Inj) 0.4 mg UNSCH PRN IV PUSH 02/16/17 06:00 (Milk Of Magnesia Liq) 30 ml Q12H PRN PO 02/16/17 06:00 (Senokot) 17.2 mg Q12H PRN PO 02/16/17 06:00 (Dulcolax Supp) 10 mg DAILY PRN RECTAL 02/16/17 06:00 (Lactulose Liq) 30 ml DAILY PRN PO 02/16/17 06:00 Potassium Chloride 10 meq/ Dextrose/Sodium Chloride 1,005 ml @ 125 mls/hr Q8H3M IV 02/16/17 08:45 02/18/17 10:04 (Dilaudid Pf Inj) 0.5 mg Q3HR PRN IV PUSH 02/16/17 08:00 02/18/17 11:03 (Ditropan) 5 mg Q8H PO 02/16/17 09:00 02/18/17 07:43 (Pyridium) 200 mg Q8HR PO 02/16/17 14:00 02/18/17 13:59 02/18/17 05:30 (Habitrol 14 Mg Patch.24 Hr) 1 patch DAILY T-DERMAL 02/17/17 18:15 02/18/17 10:03 Miscellaneous Information 1 DAILY T-DERMAL 02/17/17 18:15 02/18/17 09:00 (Tylenol) 650 mg Q4H PRN PO 02/17/17 18:15 02/17/17 18:47 Assessment and Plan Assessment and Plan Urologic impression: 1.5 cm right renal calculus status post right ureteral stent placement Recommendations: #1 urologically stable for discharge home today #2 prescriptions on chart #3 my office will make arrangements for outpatient shockwave lithotripsy to be performed on March 03 of this year Ignacio Ramírez MD Feb 18, 2017 12:18
--- NOTE | 2017-02-18 12:24 | HHI.DCPOC ---
Discharge Care Plan Goals to Promote Your Health * To prevent worsening of your condition and complications * To maintain your health at the optimal level Directions to Meet Your Goals Take your medications as prescribed Follow your dietary instruction Follow activity as directed Keep your appointments as scheduled Take your immunizations and boosters as scheduled If your symptoms worsen call your PCP, if no PCP go to Urgent Care Center or Emergency Room Smoking is Dangerous to Your Health. Avoid second hand smoke Call the 24-hour hour crisis hotline for domestic abuse at Viola Leyva MD Feb 18, 2017 12:24
[2017-02-18] MEDS ORDERED: OXYB5TAB8 PO (12:26)
[2017-02-18] MEDS ORDERED: SENN187 PO (12:26)
[2017-02-18] MEDS ORDERED: NICO14DI23 T-DERMAL (12:26)
--- NOTE | 2017-02-18 12:27 | HHI.DS ---
Discharge Summary Admission Date Feb 16, 2017 at 05:37 Discharge Date: Feb 18, 2017 Admitting Diagnosis Pyleonephritis, ureteral stone with stent in place (1) Abdominal pain ICD Code: R10.9 - Unspecified abdominal pain Status: Acute (2) Acute renal failure ICD Code: N17.9 - Acute kidney failure, unspecified (3) Renal calculus, right ICD Code: N20.0 - Calculus of kidney Status: Acute (4) Nephrolithiasis ICD Code: N20.0 - Calculus of kidney Procedures none Brief History - From Admission Patient is a very pleasant 26-year-old female who was seen here about 3 weeks ago secondary to flank pain. Associated with dysuria with gross hematuria. She was admitted then and was seen by urologist and, right ureteral stent was placed by urology was Dr. Ramírez last January 20. was discharged on ciprofloxacin. Patient states that still had on and off hematuria and flank pain. Was seen here in February 07 and emergency room because of increasing pain. She was prescribed Percocet and advised to follow-up. She came back here late last evening because of increasing pain. Denies any fever however persistent nausea with sweating. Pain was so sharp with dysuria on and off hematuria. And finally came here because of worsening pain and was admitted for further evaluation. Prior to this patient states she had a right kidney stone removal in April per patient she was supposed to have a preop evaluation on March 24 for possible ESWL procedure by urology CBC/BMP: 02/17/17 0700 02/17/17 0700 Significant Findings Laboratory Tests Test 02/16/17 01:50 02/16/17 04:55 02/17/17 07:00 White Blood Count 13.0 TH/MM3 (4.0-11.0) Lymphocytes # (Auto) 4.9 TH/MM3 (1.0-4.8) Blood Urea Nitrogen 19 MG/DL (7-18) Creatinine 1.17 MG/DL (0.50-1.00) Random Glucose 110 MG/DL (74-106) Aspartate Amino Transf (AST/SGOT) 10 U/L (15-37) Potassium Level 3.4 MEQ/L (3.5-5.1) Chloride Level 111 MEQ/L (98-107) 114 MEQ/L (98-107) Estimat Glomerular Filtration Rate 56 ML/MIN (>89) C-Reactive Protein 0.87 MG/DL (0.00-0.30) Urine Color LIGHT-RED (YELLW/STRAW) Urine Turbidity CLOUDY (CLEAR) Urine Protein 300 mg/dL (NEG-TRACE) Urine Occult Blood LARGE (NEG) Urine Leukocyte Esterase LARGE (NEG) Urine Bacteria MOD /hpf (NONE) Urine Mucus MANY /lpf (OCC) Red Blood Count 3.36 MIL/MM3 (4.00-5.30) Hemoglobin 11.5 GM/DL (11.6-15.3) Hematocrit 32.8 % (35.0-46.0) Mean Corpuscular Hemoglobin 34.2 PG (27.0-34.0) Calcium Level 8.3 MG/DL (8.5-10.1) PE at Discharge GENERAL: well-developed patient, in no apparent distress. CARDIOVASCULAR: Regular rate and rhythm without murmurs, gallops, or rubs. RESPIRATORY: Clear to auscultation. Breath sounds equal bilaterally. No wheezes , rales, or rhonchi. GASTROINTESTINAL: Abdomen soft, non-tender, mild right CVA tenderness MUSCULOSKELETAL: Extremities without clubbing, cyanosis, or edema. No joint tenderness, effusion, or edema noted. No calf tenderness. Negative Homans sign bilaterally. NEUROLOGICAL: Awake and alert. Cranial nerves II through XII intact. Motor and sensory grossly within normal limits. Five out of 5 muscle strength in all muscle groups. Normal speech. Pt update on day of discharge Feels much better. No hematuria. Still with back pain and suprapubic pain. No fever or chills. Urine cultures are negative. Seen by Dr. Dowd she will have a new appointment on March [address] Dowd to follow-up as outpatient. Patient can be discharged today. Hospital Course Patient is a 26-year-old female presenting with recurrent right flank pain persistent hematuria. Urine cultures are negative DC antibiotic. Patient also noted with acute kidney injury received IV fluids. Improved. Continue aggressive by mouth hydration. Discussed with the patient. Seen by Dr. Dowd she will have a new appointment on March [address] Dowd to follow-up as outpatient. Patient was discharged in stable condition follow-up outpatient with PCP. Pt Condition on Discharge: Good Discharge Disposition: Discharge Home Discharge Time: > 30 minutes Discharge Instructions DIET: Follow Instructions for: As Tolerated, No Restrictions Additional Diet Instructions: drink plenty of fluids Activities you can perform: Regular-No Restrictions Follow up Referrals: PCP Follow-up - 2-3 Days Urology - 03/03/17 New Medications: Naproxen (Naprosyn) 500 Mg Tab 500 MG PO BID for Pain, #60 TAB 0 Refills Oxycodone-Acetaminophen (Percocet) 5-325 mg Tab 1-2 TAB PO Q6H PRN for PAIN, #40 TAB 0 Refills Nicotine (Eq Nicotine) 14 Mg/24 Hour Dis 1 PATCH T-DERMAL DAILY for smoking cessation , #30 PATCH Oxybutynin (Ditropan) 5 Mg Tab 5 MG PO Q8H for bladder spasm , #30 TAB Sennosides (Senna-Lax) 8.6 Mg Tab 17.2 MG PO Q12H PRN for Moderate constipation, #60 TAB Continued Medications: [ control ] () Viola Leyva MD Feb 18, 2017 12:27
== END 2017-02-18 14:47 | disposition home or self-care (01) | DRG 683 ==
LOC: NEPE 23:46 → NEDA 02-16 05:37 → N06B 02-16 07:51
PROVIDERS: ADMIT Hospitalist; ATTEND Hospitalist
DX: N17.9 Acute kidney failure, unspecified (principal); N20.2 Calculus of kidney with calculus of ureter; N02.9 Recurrent and persistent hematuria with unspecified morphologic changes; F17.210 Nicotine dependence, cigarettes, uncomplicated; E87.6 Hypokalemia; N13.9 Obstructive and reflux uropathy, unspecified; Z87.442 Personal history of urinary calculi
CPT/HCPCS: 80048; 80053; 81001; 82370; 83690; 84550; 84703; 85025; 86140; 87086; 88300; 96361; 96374; 96375; J1170; J0696; J1885; J2270; J2405; J3480; J7030; J7042

== ENCOUNTER 2017-03-03 05:29 | Emergency (ER) | payer MEDICAID, OTHER ==
[~2017-03-03] VITALS: Ht 157.5 cm; Wt 80.0 kg
[~2017-03-03 05:29] MED LIST changes: +NAPR500 PO; -NAPR500T2 PO; +NICO14DI23 T-DERMAL; +OXYB5TAB8 PO; +SENN187 PO
[2017-03-03 05:31] VITALS: BP 129/82; PULSE 85; RESP 16; TEMP 97.9; O2SAT 100
[2017-03-03] MEDS ORDERED: SODIUM CHLOR 0.9% 1000 ML INJ 1,000 ML IV ONE (06:15)
[2017-03-03] MEDS ORDERED: KETOROLAC TROMETHAMINE 30 MG/ML (IVP) VIAL IV PUSH ONE (06:15)
[2017-03-03] MEDS ORDERED: MORPHINE SULFATE 4 MG/ML INJ IV PUSH ONE (06:15)
--- NOTE | 2017-03-03 06:26 | PD ---
HPI Chief Complaint: Flank/Kidney Pain Time Seen by Provider: 05:47 Travel History International Travel<30 days: No Contact w/Intl Traveler<30days: No Traveled to known affect area: No History of Present Illness HPI Patient is a 26-year-old female with history of ureteral stone, who comes in complaining of flank pain. She says she was told by Dr. Dowd to come in this morning for procedure. There is no documentation of this. In her discharge summary from 2 weeks ago, it says that she was supposed to follow-up in his office, however she has a business card that says: 03/03/17 6AM. It is unclear what this means. She says she continues to have pain. She was prescribed 40 Percocet on February 18, and says that she has finished all of these. She says she took tramadol today, but it has not helped. She denies fever or chills. She says she has blood in her urine. She also reports pain to the suprapubic area. PFSH Past Medical History Genitourinary: Yes (right ureteral stent placement) Kidney Stones: Yes ?: Unknown LMP: 02-23-17 Past Surgical History Cholecystectomy: Yes Other Surgery: Yes (kidney stent right ) Social History Alcohol Use: No Tobacco Use: Yes (1/2 ppd) Substance Use: No Allergies-Medications (Allergen,Severity, Reaction): Coded Allergies: amoxicillin (Verified Allergy, Severe, Anaphylaxis, 03/03/17) Penicillins (Verified Allergy, Unknown, Rash, 03/03/17) Reported Meds & Prescriptions Reported Meds & Active Scripts Active Percocet (Oxycodone-Acetaminophen) 5-325 mg Tab 1-2 Tab PO Q6H PRN Eq Nicotine (Nicotine) 14 Mg/24 Hour Dis 1 Patch T-DERMAL DAILY Senna-Lax (Sennosides) 8.6 Mg Tab 17.2 Mg PO Q12H PRN Ditropan (Oxybutynin Chloride) 5 Mg Tab 5 Mg PO Q8H Naprosyn (Naproxen) 500 Mg Tab 500 Mg PO BID Reported [ control ] Review of Systems Except as stated in HPI: all other systems reviewed are Neg General / Constitutional: No: Fever, Chills HENT: No: Headaches, Lightheadedness Cardiovascular: No: Chest Pain or Discomfort Respiratory: No: Shortness of Breath Gastrointestinal: Positive: Nausea, Abdominal Pain, No: Vomiting Genitourinary: Positive: Hematuria, Flank Pain Musculoskeletal: No: Edema, Pain Skin: No Rash, No Change in Pigmentation Neurologic: No: Weakness, Dizziness Physical Exam Narrative GENERAL: Awake and alert, in no acute distress. SKIN: Focused skin assessment warm/dry. HEAD: Atraumatic. Normocephalic. EYES: Pupils equal and round. No scleral icterus. ENT: Mucous membranes pink and moist. NECK: Trachea midline. No JVD. CARDIOVASCULAR: Regular rate and rhythm. No murmur appreciated. RESPIRATORY: No accessory muscle use. Clear to auscultation. Breath sounds equal bilaterally. GASTROINTESTINAL: Abdomen soft, nondistended. Bilateral CVA tenderness. Tender palpation in suprapubic area. No rebound or guarding. MUSCULOSKELETAL: No obvious deformities. No clubbing. No cyanosis. No edema. NEUROLOGICAL: Awake and alert. No obvious cranial nerve deficits. Motor grossly within normal limits. Normal speech. PSYCHIATRIC: Appropriate mood and affect; insight and judgment normal. Data Data Last Documented VS Vital Signs Date Time Temp Pulse Resp B/P (MAP) Pulse Ox O2 Delivery O2 Flow Rate FiO2 03/03/17 05:31 97.9 85 16 129/82 (98) 100 Room Air Orders Orders Iv Access Insert/Monitor (03/03/17 06:03) Complete Blood Count With Diff (03/03/17 06:03) Comprehensive Metabolic Panel (03/03/17 06:03) Urinalysis - C+S If Indicated (03/03/17 06:03) Sodium Chlor 0.9% 1000 Ml Inj (Ns 1000 M (03/03/17 06:15) Morphine Inj (Morphine Inj) (03/03/17 06:15) Ketorolac Inj (Toradol Inj) (03/03/17 06:15) [facility] Medical Decision Making Medical Screen Exam Complete: Yes Emergency Medical Condition: Yes Medical Record Reviewed: Yes Differential Diagnosis UTI versus renal stone versus chronic pain Narrative Course Patient is a 26-year-old female comes in due to flank pain. Exam shows bilateral CVA tenderness as well as suprapubic tenderness. IV established, labs sent. Patient given pain medicine and IV fluids. Dr. Dowd's office opens at 7 AM, at this time he starts answering calls for his patients. Patient will be signed out to Dr. Lopez to touch base with Dr. Dowd to see what it is he wants to do with this patient. Diagnosis Primary Impression: Renal calculus, right Demetrice Tam MD Mar 03, 2017 06:26
[2017-03-03 06:39] LABS: BASOPHIL % 0.4 % (0.0-2.0); EOSINOPHIL # 0.2 TH/MM3 (0-0.4); EOSINOPHIL % 1.3 % (0.0-4.0); HEMATOCRIT 40.7 % (35.0-46.0); HEMO FLAGS DIFF FINAL; LYMPHOCYTE # 2.9 TH/MM3 (1.0-4.8); MEAN CELL VOLUME 97.4 FL (80.0-100.0); MEAN CORPUSCULAR HGB CONC 33.9 % (32.0-36.0); MONO % 5.1 % (0.0-8.0); NEUT % 70.2 % (16.0-70.0); PLATELET COUNT 295 TH/MM3 (150-450); RED BLOOD COUNT 4.18 MIL/MM3 (4.00-5.30); RED CELL DISTRIBUTION WIDTH 12.7 % (11.6-17.2); WHITE BLOOD COUNT 12.8 TH/MM3 (4.0-11.0)
[2017-03-03 07:00] LABS: ALKALINE PHOSPHATASE 63 U/L (45-117); TOTAL BILIRUBIN ADULT LESS THAN 0.1 MG/DL (0.2-1.0)
[2017-03-03 07:07] LABS: BACTERIA, URINE OCC /hpf; BLOOD, URINE LARGE (NEG); COMMENT (UR) CULTURE INDICATED; CULTURE IF INDICATED CULTURE INDICATED; GLUCOSE,URINE NEG (NEG); KETONE, URINE NEG (NEG); MUCUS URINE FEW /lpf (OCC); NITRITE,URINE NEG (NEG); SQUAMOUS EPITHELIAL CELL URINE 1 /hpf (0-5); URINE COLOR YELLOW (YELLW/STRAW)
[2017-03-03 07:12] LABS: ALT (GPT) 19 U/L (10-53); ANION GAP 6 MEQ/L (5-15); AST (GOT) 18 U/L (15-37); BICARBONATE 25.7 MEQ/L (21.0-32.0); BLOOD UREA NITROGEN 16 MG/DL (7-18); CHLORIDE 109 MEQ/L (98-107); GLOMERULAR FILTRATION RATE 60 ML/MIN (>89); SODIUM (NA) 141 MEQ/L (136-145)
[2017-03-03 07:17] VITALS: BP 114/68; PULSE 78; RESP 17; TEMP 98.1; O2SAT 100
--- NOTE | 2017-03-03 07:19 | PD ---
Physical Exam Narrative Received sign out from previous team to call Dr. Ramírez regarding this patient. 26yo F with history of right ureteral stone here because she claims Dr. Ramírez asked her to come to the ED today at 6am for a procedure since she does not have insurance . Labs reviewed, leukocytosis at 12.8. Creatinine 1.10. UA showed large leukocyte. WBC 78. Pt was given NS IVF, morphine and toradol from previous team. Pt has been NPO since 10 pm. She was last admitted -02/18/17 for right flank pain and was seen by Dr. Ramírez here. Pt still complains of right flank pain and suprapubic pain as well as hematuria and dysuria. Discussed with Dr. Ramírez and pt is admitted to same day surgery where he will do lithotripsy. Data Data Last Documented VS Vital Signs Date Time Temp Pulse Resp B/P (MAP) Pulse Ox O2 Delivery O2 Flow Rate FiO2 03/03/17 07:17 98.1 78 17 114/68 (83) 100 Room Air Orders Orders Iv Access Insert/Monitor (03/03/17 06:03) Complete Blood Count With Diff (03/03/17 06:03) Comprehensive Metabolic Panel (03/03/17 06:03) Urinalysis - C+S If Indicated (03/03/17 06:03) Sodium Chlor 0.9% 1000 Ml Inj (Ns 1000 M (03/03/17 06:15) Morphine Inj (Morphine Inj) (03/03/17 06:15) Ketorolac Inj (Toradol Inj) (03/03/17 06:15) Urine Culture (03/03/17 06:15) Ed Urine Pregnancytest Poc (03/03/17 07:20) Levofloxacin 500 Mg Premix Inj (Levaquin (03/03/17 07:45) Admit Order (Ed Use Only) (03/03/17 07:45) NPO (03/03/17 07:45) Labs Laboratory Tests Test 03/03/17 06:15 White Blood Count 12.8 TH/MM3 Red Blood Count 4.18 MIL/MM3 Hemoglobin 13.8 GM/DL Hematocrit 40.7 % Mean Corpuscular Volume 97.4 FL Mean Corpuscular Hemoglobin 33.0 PG Mean Corpuscular Hemoglobin Concent 33.9 % Red Cell Distribution Width 12.7 % Platelet Count 295 TH/MM3 Mean Platelet Volume 6.9 FL Neutrophils (%) (Auto) 70.2 % Lymphocytes (%) (Auto) 23.0 % Monocytes (%) (Auto) 5.1 % Eosinophils (%) (Auto) 1.3 % Basophils (%) (Auto) 0.4 % Neutrophils # (Auto) 9.0 TH/MM3 Lymphocytes # (Auto) 2.9 TH/MM3 Monocytes # (Auto) 0.6 TH/MM3 Eosinophils # (Auto) 0.2 TH/MM3 Basophils # (Auto) 0.0 TH/MM3 CBC Comment DIFF FINAL Differential Comment Urine Color YELLOW Urine Turbidity HAZY Urine pH 7.0 Urine Specific [place] 1.018 Urine Protein 100 mg/dL Urine Glucose (UA) NEG mg/dL Urine Ketones NEG mg/dL Urine Occult Blood LARGE Urine Nitrite NEG Urine Bilirubin NEG Urine Urobilinogen LESS THAN 2.0 MG/DL Urine Leukocyte Esterase LARGE Urine RBC /hpf Urine WBC 78 /hpf Urine Squamous Epithelial Cells 1 /hpf Urine Bacteria OCC /hpf Urine Mucus FEW /lpf Microscopic Urinalysis Comment CULTURE INDICATED Blood Urea Nitrogen 16 MG/DL Creatinine 1.10 MG/DL Random Glucose 98 MG/DL Total Protein 7.1 GM/DL Albumin 3.7 GM/DL Calcium Level 8.9 MG/DL Alkaline Phosphatase 63 U/L Aspartate Amino Transf (AST/SGOT) 18 U/L Alanine Aminotransferase (ALT/SGPT) 19 U/L Total Bilirubin LESS THAN 0.1 MG/DL Sodium Level 141 MEQ/L Potassium Level 4.0 MEQ/L Chloride Level 109 MEQ/L Carbon Dioxide Level 25.7 MEQ/L Anion Gap 6 MEQ/L Estimat Glomerular Filtration Rate 60 ML/MIN [facility] Supervised Visit with ERMELINDA: No Diagnosis Primary Impression: Renal calculus, right Admitting Information Admitting Physician Requests: Observation Scripts Oxycodone-Acetaminophen (Percocet) 5-325 mg Tab 1-2 TAB PO Q6H Y for PAIN, #30 TAB 0 Refills Prov: Ignacio Ramírez MD 03/03/17 Vianey Lopez DO Mar 03, 2017 07:19
[2017-03-03] MEDS ORDERED: LEVOFLOXACIN 500 MG PREMIX INJ 100 ML IV ONE (07:45)
--- NOTE | 2017-03-03 11:04 | HHI.HP ---
HPI Service Urology Primary Care Physician Ignacio Ramírez MD Admission Diagnosis Right renal calculus Diagnoses: Chief Complaint: Right flank pain History of Present Illness Case of a pleasant 26 show female with a history of renal calculi who is status post cystoscopy and placement of a right ureteral stent for management of a 1.5 cm right renal calculus. Arrangements were the process of being made for outpatient shockwave lithotripsy when the patient presented to emergency room with worsening right flank pain. Patient has been afebrile and denied gross hematuria. She has been taking Percocet for management of right flank pain related to the indwelling stent. She reports being nothing by mouth after midnight. I discussed proceeding with further management with shockwave lithotripsy today as the equipment was presently available in the operating room suite. Review of Systems Constitutional: DENIES: Fever, Chills Cardiovascular: DENIES: Chest pain Gastrointestinal: COMPLAINS OF: Abdominal pain (right sided) Musculoskeletal: COMPLAINS OF: Back pain (right flank) Except as stated in HPI: all other systems reviewed are Neg Past Family Social History Past Medical History Nephrolithiasis Cholelithiasis Past Surgical History Status post cystoscopy with right ureteral stent placement Status post cholecystectomy Reported Medications Refer to EMR Allergies: Coded Allergies: amoxicillin (Verified Allergy, Severe, Anaphylaxis, 03/03/17) Penicillins (Verified Allergy, Unknown, Rash, 03/03/17) Active Ordered Medications Refer to EMR Family History Hypertension Diabetes mellitus Social History Smoker of one half pack per day Denies alcohol use Denies history of intravenous drug abuse Physical Exam Vital Signs Date Time Temp Pulse Resp B/P (MAP) Pulse Ox O2 Delivery O2 Flow Rate FiO2 03/03/17 07:56 17 03/03/17 07:56 17 03/03/17 07:17 98.1 78 17 114/68 (83) 100 Room Air 03/03/17 05:31 97.9 85 16 129/82 (98) 100 Room Air Physical Exam GENERAL: This is a well-nourished, well-developed patient, in no apparent distress. SKIN: No rashes, ecchymoses or lesions. Cool and dry. HEAD: Atraumatic. Normocephalic. No temporal or scalp tenderness. EYES: Pupils equal round and reactive. Extraocular motions intact. No scleral icterus. No injection or drainage. ENT: Nose without bleeding, purulent drainage or septal hematoma. Throat without erythema, tonsillar hypertrophy or exudate. Uvula midline. Airway patent. NECK: Trachea midline. No JVD or lymphadenopathy. Supple, nontender, no meningeal signs. CARDIOVASCULAR: Regular rate and rhythm without murmurs, gallops, or rubs. RESPIRATORY: Clear to auscultation. Breath sounds equal bilaterally. No wheezes , rales, or rhonchi. GASTROINTESTINAL: Abdomen soft, non-tender, nondistended. No hepato-splenomegaly , or palpable masses. No guarding. GENITOURINARY: No CVA tenderness MUSCULOSKELETAL: Extremities without clubbing, cyanosis, or edema. No joint tenderness, effusion, or edema noted. No calf tenderness. Negative Homans sign bilaterally. NEUROLOGICAL: Awake and alert. Cranial nerves II through XII intact. Motor and sensory grossly within normal limits. Five out of 5 muscle strength in all muscle groups. Normal speech. Lab results reviewed: Yes Laboratory Tests Test 03/03/17 06:15 White Blood Count 12.8 Red Blood Count 4.18 Hemoglobin 13.8 Hematocrit 40.7 Mean Corpuscular Volume 97.4 Mean Corpuscular Hemoglobin 33.0 Mean Corpuscular Hemoglobin Concent 33.9 Red Cell Distribution Width 12.7 Platelet Count 295 Mean Platelet Volume 6.9 Neutrophils (%) (Auto) 70.2 Lymphocytes (%) (Auto) 23.0 Monocytes (%) (Auto) 5.1 Eosinophils (%) (Auto) 1.3 Basophils (%) (Auto) 0.4 Neutrophils # (Auto) 9.0 Lymphocytes # (Auto) 2.9 Monocytes # (Auto) 0.6 Eosinophils # (Auto) 0.2 Basophils # (Auto) 0.0 CBC Comment DIFF FINAL Differential Comment Urine Color YELLOW Urine Turbidity HAZY Urine pH 7.0 Urine Specific [place] 1.018 Urine Protein 100 Urine Glucose (UA) NEG Urine Ketones NEG Urine Occult Blood LARGE Urine Nitrite NEG Urine Bilirubin NEG Urine Urobilinogen LESS THAN 2.0 Urine Leukocyte Esterase LARGE Urine RBC Urine WBC 78 Urine Squamous Epithelial Cells 1 Urine Bacteria OCC Urine Mucus FEW Microscopic Urinalysis Comment CULTURE INDICATED Blood Urea Nitrogen 16 Creatinine 1.10 Random Glucose 98 Total Protein 7.1 Albumin 3.7 Calcium Level 8.9 Alkaline Phosphatase 63 Aspartate Amino Transf (AST/SGOT) 18 Alanine Aminotransferase (ALT/SGPT) 19 Total Bilirubin LESS THAN 0.1 Sodium Level 141 Potassium Level 4.0 Chloride Level 109 Carbon Dioxide Level 25.7 Anion Gap 6 Estimat Glomerular Filtration Rate 60 Date/Time Source Procedure Growth Status 03/03/17 06:15 Urine Clean Catch Urine Culture Pending Received Result Diagram: 03/03/1715 03/03/1715 Personally reviewed images: Yes Caprini VTE Risk Assessment Caprini VTE Risk Assessment: No/Low Risk (score <= 1) Caprini Risk Assessment Model Point Value = 1 Point Value = 2 Point Value = 3 Point Value = 5 Age 41-60 Minor surgery BMI > 25 kg/m2 Swollen legs Varicose veins or History of unexplained or recurrent spontaneous Oral contraceptives or hormone replacement Sepsis (< 1 month) Serious lung disease, including pneumonia (< 1 month) Abnormal pulmonary function Acute myocardial infarction Congestive heart failure (< 1 month) History of inflammatory bowel disease Medical patient at bed rest Age 61-74 Arthroscopic surgery Major open surgery (> 45 min) Laparoscopic surgery (> 45 min) Malignancy Confined to bed (> 72 hours) Immobilizing plaster cast Central venous access Age >= 75 History of VTE Family history of VTE Factor V Leiden Prothrombin [id number] Lupus anticoagulant Anticardiolipin antibodies Elevated serum homocysteine Heparin-induced thrombocytopenia Other congenital or acquired thrombophilia Stroke (< 1 month) Elective arthroplasty Hip, pelvis, or leg fracture Acute spinal cord injury (< 1 month) Prophylaxis Regimen Total Risk Factor Score Risk Level Prophylaxis Regimen 0-1 Low Early ambulation 2 Moderate Order ONE of the following: *Sequential Compression Device (SCD) *Heparin 5000 units SQ BID 3-4 Higher Order ONE of the following medications: *Heparin 5000 units SQ TID *Enoxaparin/Lovenox 40 mg SQ daily (WT < 150 kg, CrCl > 30 mL/min) *Enoxaparin/Lovenox 30 mg SQ daily (WT < 150 kg, CrCl > 10-29 mL/min) *Enoxaparin/Lovenox 30 mg SQ BID (WT < 150 kg, CrCl > 30 mL/min) AND/OR *Sequential Compression Device (SCD) 5 or more Highest Order ONE of the following medications: *Heparin 5000 units SQ TID (Preferred with Epidurals) *Enoxaparin/Lovenox 40 mg SQ daily (WT < 150 kg, CrCl > 30 mL/min) *Enoxaparin/Lovenox 30 mg SQ daily (WT < 150 kg, CrCl > 10-29 mL/min) *Enoxaparin/Lovenox 30 mg SQ BID (WT < 150 kg, CrCl > 30 mL/min) AND *Sequential Compression Device (SCD) Assessment and Plan Assessment and Plan Urologic impression: #1 15 mm right renal calculus #2 status post right stent placement #3 right flank pain secondary to stent irritation Plan: #1 keep patient nothing by mouth #2 bring patient to the operating room suite today for extracorporeal shockwave lithotripsy of the right renal calculus #3 wrist and benefits discussed with patient Ignacio Ramírez MD Mar 03, 2017 11:04
[2017-03-03] MEDS ORDERED: DEXAMETHASONE SOD PHOS 4 MG/ML VIAL IV ONE (12:00)
[2017-03-03] MEDS ORDERED: LIDOCAINE HCL 1% PF 5 ML SYRINGE OTHER ONE (12:00)
[2017-03-03] MEDS ORDERED: PROPOFOL 200 MG/20 ML AMP IV ONE (12:00)
[2017-03-03] MEDS ORDERED: ONDANSETRON HCL 4 MG/2 ML VIAL IV ONE (12:00)
[2017-03-03] MEDS ORDERED: MIDAZOLAM HCL 2 MG/2 ML VIAL IV ONE (12:00)
--- NOTE | 2017-03-03 12:14 | PD.OP ---
Operative Report Date of Surgery: Mar 03, 2017 Preoperative Diagnosis: (1) Renal calculus, right Postoperative Diagnosis: (1) Renal calculus, right Procedure: Extracorporeal shockwave lithotripsy right renal calculus Anesthesia: General Surgeon: Ignacio Ramírez [employer](s): None Operation and Findings: Indication for procedure: Case of a pleasant 26-year-old female with a history of a 15 mm right renal calculus who is status post right ureteral stent placement. Patient presented to the emergency room earlier this morning with worsening right flank pain. Presents now for extracorporeal shockwave lithotripsy of the right renal calculus. Operative procedure in detail: Patient was brought to the operating suite and placed supine on the lithotripsy table. She was then placed under general anesthesia. After appropriate timeout was undertaken I proceeded with localizing the patient's right renal calculus with fluoroscopy. She subsequently received shockwave lithotripsy utilizing the Dornier mobile lithotripsy device. She received a total of 3000 shocks with a maximum power level setting of 5. At the conclusion of the procedure the stone was spread out and less dense consistent with fragmentation. She tolerated the procedure without complications. Transferred to the PACU in satisfactory condition. Ignacio Ramírez MD Mar 03, 2017 12:14
[2017-03-03] MEDS ORDERED: oxyCODONE/ACETAMINOPHEN 5 MG/325 MG TAB PO PRN (12:15)
[2017-03-03] MEDS ORDERED: ONDANSETRON HCL 4 MG/2 ML VIAL IV PUSH PRN (12:15)
[2017-03-03] MEDS ORDERED: PERC5TAB12 PO (12:17)
[2017-03-03] MEDS ORDERED: DO NOT ADM ANY ANTICOAGULANT DRUGS PRN (12:20)
[2017-03-03] MEDS ORDERED: POVIDONE IODINE 5% (ANTISEPSIS KIT) 4 APPLICATIONS EACH NARE PRN (13:30)
[2017-03-03] MEDS ORDERED: CHLORHEXIDINE GLUCONATE 2 % 1 PACK (2 CLOTHS) TOPICAL PRN (13:30)
[2017-03-03] MEDS ORDERED: SODIUM CHLORID 0.9% 500 ML IV PRN (13:30)
[2017-03-03] MEDS ORDERED: METOPROLOL TARTRATE 25 MG TAB PO PRN (13:30)
[2017-03-03] MEDS ORDERED: LACTATED RINGER'S 1000 ML IV PRN (13:30)
[2017-03-03 14:30] VITALS: BP 121/86; PULSE 73; RESP 20; TEMP 97.5; O2SAT 99
== END 2017-03-03 14:37 | disposition home or self-care (01) ==
LOC: NEPE 05:29 → NEDA 07:46 → UNDOADMOB 07:46 → NEDA 11:05 → HPAC 11:05 → NEPE 14:37
DX: N20.0 Calculus of kidney (principal); R31.9 Hematuria, unspecified; F17.200 Nicotine dependence, unspecified, uncomplicated; Z88.0 Allergy status to penicillin
CPT/HCPCS: 50590; 80053; 81001; 84703; 85025; 87086; 96361; 96374; 96375; 99285; J1100; J1885; J1956; J2250; J2270; J2405; J3010; J7030

== ENCOUNTER 2017-03-16 17:00 | Emergency (ER) | payer OTHER, MEDICAID ==
[2017-03-16 17:02] VITALS: BP 137/85; PULSE 93; RESP 18; TEMP 98.6; O2SAT 100
[2017-03-16] MEDS ORDERED: SODIUM CHLOR 0.9% 1000 ML INJ 1,000 ML IV SCH (17:37)
[2017-03-16] MEDS ORDERED: SODIUM CHLORIDE 0.9% FLUSH 10 ML FLUSH IV FLUSH PRN (17:45)
[2017-03-16] MEDS ORDERED: KETOROLAC TROMETHAMINE 30 MG/ML (IVP) VIAL IVP ONE (17:45)
[2017-03-16] MEDS ORDERED: ONDANSETRON HCL 4 MG/2 ML VIAL IVP ONE (17:45)
[2017-03-16] MEDS ORDERED: MORPHINE SULFATE 2 MG/ML INJ IV PUSH ONE (17:45)
--- NOTE | 2017-03-16 18:25 | PD ---
HPI Chief Complaint: Abdominal Pain Time Seen by Provider: 17:23 Travel History International Travel<30 days: No Contact w/Intl Traveler<30days: No Traveled to known affect area: No History of Present Illness HPI Patient is a 26-year-old female with history of renal stone and ureteral stenting, who comes in complaining of flank pain, abdominal pain and chills. She says this is been going on for the past 4 days. She had a prescription for Percocet, given to her on March 03, after having lithotripsy performed, but she is out of them. She has tried taking naproxen without relief of her symptoms. She says she feels like her whole abdomen hurts, but worse in the epigastric area. She says she was told she had to have her stent removed in 2 weeks, but she tried calling the office, and they told her she could not be seen there due to insurance issues. She says she has not had a fever, but she has felt very cold. PFSH Past Medical History Genitourinary: Yes (right ureteral stent placement) Kidney Stones: Yes LMP: 02/19/2017 Past Surgical History Cholecystectomy: Yes Other Surgery: Yes (kidney stent right ) Social History Alcohol Use: No Tobacco Use: Yes (03/23 ppd) Substance Use: No Allergies-Medications (Allergen,Severity, Reaction): Coded Allergies: amoxicillin (Verified Allergy, Severe, Anaphylaxis, 03/03/17) Penicillins (Verified Allergy, Unknown, Rash, 03/03/17) Reported Meds & Prescriptions Reported Meds & Active Scripts Active Cipro (Ciprofloxacin HCl) 500 Mg Tab 500 Mg PO BID 7 Days Percocet (Oxycodone-Acetaminophen) 5-325 mg Tab 1 Tab PO Q6H PRN Naprosyn (Naproxen) 500 Mg Tab 500 Mg PO BID Reported [ control ] Review of Systems Except as stated in HPI: all other systems reviewed are Neg General / Constitutional: Positive: Chills HENT: No: Headaches, Lightheadedness Cardiovascular: No: Chest Pain or Discomfort Respiratory: No: Shortness of Breath Gastrointestinal: Positive: Nausea, Abdominal Pain Genitourinary: Positive: Flank Pain Musculoskeletal: No: Myalgias, Edema Skin: No Rash, No Itching, No Change in Pigmentation Neurologic: No: Weakness, Dizziness Physical Exam Narrative GENERAL: Awake and alert, in no acute distress. SKIN: Focused skin assessment warm/dry. No wounds or signs of infection. HEAD: Atraumatic. Normocephalic. EYES: Pupils equal and round. No scleral icterus. ENT: Mucous membranes pink and moist. NECK: Trachea midline. No JVD. CARDIOVASCULAR: Regular rate and rhythm. No murmur appreciated. RESPIRATORY: No accessory muscle use. Clear to auscultation. Breath sounds equal bilaterally. GASTROINTESTINAL: Abdomen soft, nondistended. Diffusely tender to palpation, worse in the epigastric area. No rebound or guarding. Bilateral CVA tenderness. MUSCULOSKELETAL: No obvious deformities. No clubbing. No cyanosis. No edema. NEUROLOGICAL: Awake and alert. No obvious cranial nerve deficits. Motor grossly within normal limits. Normal speech. PSYCHIATRIC: Appropriate mood and affect; insight and judgment normal. Data Data Last Documented VS Vital Signs Date Time Temp Pulse Resp B/P (MAP) Pulse Ox O2 Delivery O2 Flow Rate FiO2 03/16/17 20:31 03/16/17 19:07 98.2 68 18 98 Room Air Orders Orders Complete Blood Count With Diff (03/16/17 17:37) Comprehensive Metabolic Panel (03/16/17 17:37) Lipase (03/16/17 17:37) Urinalysis - C+S If Indicated (03/16/17 17:37) Ct Abd/Pel W/O Iv Contrast (03/16/17 17:37) Iv Access Insert/Monitor (03/16/17 17:37) Ecg Monitoring (03/16/17 17:37) Oximetry (03/16/17 17:37) Ondansetron Inj (Zofran Inj) (03/16/17 17:45) Sodium Chlor 0.9% 1000 Ml Inj (Ns 1000 M (03/16/17 17:37) Sodium Chloride 0.9% Flush (Ns Flush) (03/16/17 17:45) Ketorolac Inj (Toradol Inj) (03/16/17 17:45) Ed Urine Pregnancytest Poc (03/16/17 17:37) Morphine Inj (Morphine Inj) (03/16/17 17:45) Urine Culture (03/16/17 17:45) Ed Discharge Order (03/16/17 19:23) Mandatory Outpatient Referral (03/16/17 19:24) Labs Laboratory Tests Test 03/16/17 17:45 White Blood Count 13.2 TH/MM3 Red Blood Count 3.71 MIL/MM3 Hemoglobin 12.5 GM/DL Hematocrit 35.9 % Mean Corpuscular Volume 96.9 FL Mean Corpuscular Hemoglobin 33.9 PG Mean Corpuscular Hemoglobin Concent 35.0 % Red Cell Distribution Width 11.9 % Platelet Count 340 TH/MM3 Mean Platelet Volume 7.9 FL Neutrophils (%) (Auto) 66.5 % Lymphocytes (%) (Auto) 27.2 % Monocytes (%) (Auto) 4.4 % Eosinophils (%) (Auto) 1.2 % Basophils (%) (Auto) 0.7 % Neutrophils # (Auto) 8.8 TH/MM3 Lymphocytes # (Auto) 3.6 TH/MM3 Monocytes # (Auto) 0.6 TH/MM3 Eosinophils # (Auto) 0.2 TH/MM3 Basophils # (Auto) 0.1 TH/MM3 CBC Comment DIFF FINAL Differential Comment Urine Color YELLOW Urine Turbidity HAZY Urine pH 6.5 Urine Specific [place] 1.018 Urine Protein 100 mg/dL Urine Glucose (UA) NEG mg/dL Urine Ketones NEG mg/dL Urine Occult Blood LARGE Urine Nitrite NEG Urine Bilirubin NEG Urine Urobilinogen LESS THAN 2.0 MG/DL Urine Leukocyte Esterase MOD Urine RBC /hpf Urine WBC 25 /hpf Urine Bacteria OCC /hpf Urine Hyaline Casts 3 /lpf Microscopic Urinalysis Comment CULTURE INDICATED Blood Urea Nitrogen 15 MG/DL Creatinine 1.11 MG/DL Random Glucose 124 MG/DL Total Protein 7.0 GM/DL Albumin 3.3 GM/DL Calcium Level 8.9 MG/DL Alkaline Phosphatase 56 U/L Aspartate Amino Transf (AST/SGOT) 13 U/L Alanine Aminotransferase (ALT/SGPT) 18 U/L Total Bilirubin 0.1 MG/DL Sodium Level 141 MEQ/L Potassium Level 3.4 MEQ/L Chloride Level 108 MEQ/L Carbon Dioxide Level 26.4 MEQ/L Anion Gap 7 MEQ/L Estimat Glomerular Filtration Rate 59 ML/MIN Lipase 165 U/L [facility] Medical Decision Making Medical Screen Exam Complete: Yes Emergency Medical Condition: Yes Medical Record Reviewed: Yes Differential Diagnosis UTI versus pyelonephritis versus infected ureteral stent versus encounter for pain medicine. Narrative Course Patient is a 26-year-old female who comes in complaining of abdominal pain. Exam shows diffuse tenderness to palpation. IV established, labs sent. Patient given pain medicine. CT abdomen and pelvis performed. Labs show likely UTI. CT abdomen and pelvis shows possible occlusion of her ureteral stent. Last 24 hours Impressions Abdomen/Pelvis CT 03/16/17 [id number] Signed Impressions: Service Date/Time: Thursday, March 16, 2017 18:01 - CONCLUSION: 1. 4 mm stone in the mid right ureter. The stone is faintly visible on the initial tool grinder operator external radiograph. 2. There is mild hydronephrosis and hydroureter on the right in the presence of a ureteral stent. Stent appears appropriately positioned, could be occluded. 3. Multiple tiny nonobstructing stones are seen in the left kidney. Paresh Castaneda MD I spoke with Dr. Saucedo of urology, who says he will arrange an appointment for her tomorrow. She'll be discharged with pain medicine and a prescription for Cipro. Advised to follow-up with urology and return to the ED as needed for any worsening symptoms. Mandatory referral placed for urology. Diagnosis Primary Impression: UTI (urinary tract infection) Qualified Codes: N30.00 - Acute cystitis without hematuria Additional Impression: Ureteral stent occlusion Qualified Codes: T83.192A - Other mechanical complication of indwelling ureteral stent, initial encounter Patient Instructions: General Instructions, Urinary Tract Infection in Women ( ED) Additional Instructions: Follow-up with urology. Take all of your antibiotic. Take pain medicine as needed. Return to the ED as needed for any worsening symptoms. Scripts Ciprofloxacin (Cipro) 500 Mg Tab 500 MG PO BID for Infection for 7 Days, #14 TAB 0 Refills Prov: Demetrice Tam MD 03/16/17 Oxycodone-Acetaminophen (Percocet) 5-325 mg Tab 1 TAB PO Q6H Y for PAIN, #14 TAB 0 Refills Prov: Demetrice Tam MD 03/16/17 Disposition: DISCHARGE HOME Condition: Stable Demetrice Tam MD Mar 16, 2017 18:25
--- NOTE | 2017-03-16 18:35 | RADRPT ---
EXAM DATE/TIME: 03/16/2017 18:01 [place] COMPARISON: ABDOMEN KUB ONLY, February 07, 2017, 11:29. INDICATIONS : Patient complains of lower abdominal pain. ORAL CONTRAST: No oral contrast ingested. RADIATION DOSE: 12.95 CTDIvol (mGy) MEDICAL HISTORY : Renal calculi. SURGICAL HISTORY : Cholecystectomy. Lithrotripsy 03/03/17,right ureteral stent placed 3 months ago ENCOUNTER: Initial ACUITY: 4 - 6 days PAIN SCALE: 6/10 LOCATION: lower quadrant TECHNIQUE: Volumetric scanning of the abdomen and pelvis was performed. Using automated exposure control and ad justment of the mA and/or kV according to patient size, radiation dose was kept as low as reasonably achievable to obtain optimal diagnostic quality images. DICOM format image data is available electro nically for review and comparison. FINDINGS: LOWER LUNGS: The visualized lower lungs are clear. LIVER: Homogeneous density without lesion. There is no dilation of the biliary tree. Previous cholecystecto my.. SPLEEN: Normal size without lesion. PANCREAS: Within normal limits. KIDNEYS: Right ureteral stent present. There is mild hydronephrosis and hydroureter. A 4 mm stone is seen in t he mid right ureter at the level of S1. The large stone previously seen in the mid zone of the right kidney is no longer demonstrated. Scattered 2 mm nonobstructing stones are seen of the left kidney. N o left ureteral calculus or hydronephrosis/hydroureter. ADRENAL GLANDS: Within normal limits. VASCULAR: There is no aortic aneurysm. BOWEL/MESENTERY: The stomach, small bowel, and colon demonstrate no acute abnormality. There is no free intraperitone al air or fluid. Normal appendix. ABDOMINAL WALL: Within normal limits. RETROPERITONEUM: There is no lymphadenopathy. BLADDER: No wall thickening or mass. REPRODUCTIVE: Within normal limits. INGUINAL: There is no lymphadenopathy or hernia. MUSCULOSKELETAL: No acute bony abnormality demonstrated. CONCLUSION: 1. 4 mm stone in the mid right ureter. The stone is faintly visible on the initial immigration consultant radiograph. 2. There is mild hydronephrosis and hydroureter on the right in the presence of a ureteral stent. Arben nt appears appropriately positioned, could be occluded. 3. Multiple tiny nonobstructing stones are seen in the left kidney. Paresh Castaneda MD on March 16, 2017 at 18:29 Board Certified Radiologist. This report was verified electronically.
[2017-03-16 18:38] VITALS: BP 118/82; PULSE 70; RESP 14; TEMP 98.2; O2SAT 97
[2017-03-16 18:52] LABS: AUTOMATED NEUTROPHIL # 8.8 TH/MM3 (1.8-7.7); BASOPHIL # 0.1 TH/MM3 (0-0.2); BASOPHIL % 0.7 % (0.0-2.0); EOSINOPHIL # 0.2 TH/MM3 (0-0.4); EOSINOPHIL % 1.2 % (0.0-4.0); HEMATOCRIT 35.9 % (35.0-46.0); HEMOGLOBIN 12.5 GM/DL (11.6-15.3); LYMPH % 27.2 % (9.0-44.0); LYMPHOCYTE # 3.6 TH/MM3 (1.0-4.8); MEAN CELL VOLUME 96.9 FL (80.0-100.0); MEAN CORPUSCULAR HEMOGLOBIN 33.9 PG (27.0-34.0); MEAN PLATELET VOLUME 7.9 FL (7.0-11.0); MONO % 4.4 % (0.0-8.0); MONOCYTE # 0.6 TH/MM3 (0-0.9); NEUT % 66.5 % (16.0-70.0); PLATELET COUNT 340 TH/MM3 (150-450); RED BLOOD COUNT 3.71 MIL/MM3 (4.00-5.30); RED CELL DISTRIBUTION WIDTH 11.9 % (11.6-17.2); WHITE BLOOD COUNT 13.2 TH/MM3 (4.0-11.0)
[2017-03-16 18:56] LABS: BACTERIA, URINE OCC /hpf; BILIRUBIN, URINE NEG (NEG); BLOOD, URINE LARGE (NEG); GLUCOSE,URINE NEG (NEG); HYALINE CAST, URINE 3 /lpf (RARE); KETONE, URINE NEG (NEG); NITRITE,URINE NEG (NEG); PH, URINE 6.5 (5.0-8.5); URINE COLOR YELLOW (YELLW/STRAW); URINE LEUKOCYTE ESTERASE MOD (NEG)
[2017-03-16 19:07] VITALS: BP 102/72; PULSE 68; RESP 18; TEMP 98.2; O2SAT 98
[2017-03-16 19:09] LABS: ALBUMIN 3.3 GM/DL (3.4-5.0); ALT (GPT) 18 U/L (10-53); AST (GOT) 13 U/L (15-37); BICARBONATE 26.4 MEQ/L (21.0-32.0); BLOOD UREA NITROGEN 15 MG/DL (7-18); CALCIUM 8.9 MG/DL (8.5-10.1); CHLORIDE 108 MEQ/L (98-107); CREATININE 1.11 MG/DL (0.50-1.00); GLOMERULAR FILTRATION RATE 59 ML/MIN (>89); GLUCOSE,RANDOM 124 MG/DL (74-106); LIPASE 165 U/L (73-393); SODIUM (NA) 141 MEQ/L (136-145)
[2017-03-16 19:12] LABS: ALKALINE PHOSPHATASE 56 U/L (45-117); TOTAL BILIRUBIN ADULT 0.1 MG/DL (0.2-1.0)
[2017-03-16] MEDS ORDERED: CIPR-9 PO (19:23)
[2017-03-16] MEDS ORDERED: PERC5TAB12 PO (19:23)
== END 2017-03-16 20:58 | disposition home or self-care (01) ==
LOC: NEPC 17:00
DX: N30.00 Acute cystitis without hematuria (principal); T83.192A Other mechanical complication of indwelling ureteral stent, initial encounter; N13.2 Hydronephrosis with renal and ureteral calculous obstruction; F17.200 Nicotine dependence, unspecified, uncomplicated
CPT/HCPCS: 74176; 80053; 81001; 83690; 84703; 85025; 87086; 96361; 96374; 96375; 99285; J1885; J2270; J2405; J7030

== ENCOUNTER 2017-03-20 10:20 | Inpatient (IN) | payer MEDICAID, OTHER ==
[~2017-03-20] VITALS: Ht 160 cm; Wt 80.0 kg
[2017-03-20] VITALS (7 sets, daily range): BP systolic 108–128; BP diastolic 69–83; PULSE 64–88; RESP 16–18; TEMP 97.3–98.1; O2SAT 98–100
[~2017-03-20 10:20] MED LIST changes: +CIPR-9 PO; -NICO14DI23 T-DERMAL; -OXYB5TAB8 PO; -SENN187 PO
--- NOTE | 2017-03-20 10:48 | PD ---
HPI Chief Complaint: Complaint Time Seen by Provider: 10:38 Travel History International Travel<30 days: No Contact w/Intl Traveler<30days: No Traveled to known affect area: No History of Present Illness HPI This is a 26 year old female with a history of right sided renal stent, presents today with complaints of right sided flank pain and suprapubic discomfort. Patient reports that her urine has become darker. She reports subjective chills with no fevers. There is nausea no vomiting diarrhea. There are no other complaints at the time examination. PFSH Past Medical History Diminished Hearing: No Genitourinary: Yes (right ureteral stent placement) Kidney Stones: Yes Tetanus Vaccination: > 5 Years Influenza Vaccination: No ?: Not LMP: 02/19/17 : 1 Para: 1 Past Surgical History Cholecystectomy: Yes Other Surgery: Yes (kidney stent right ) Social History Alcohol Use: No Tobacco Use: Yes (03/23 ppd) Substance Use: No Allergies-Medications (Allergen,Severity, Reaction): Coded Allergies: amoxicillin (Verified Allergy, Severe, Anaphylaxis, 03/03/17) Penicillins (Verified Allergy, Unknown, Rash, 03/03/17) Reported Meds & Prescriptions Reported Meds & Active Scripts Active Cipro (Ciprofloxacin HCl) 500 Mg Tab 500 Mg PO BID 7 Days Percocet (Oxycodone-Acetaminophen) 5-325 mg Tab 1 Tab PO Q6H PRN Review of Systems Except as stated in HPI: all other systems reviewed are Neg General / Constitutional: Positive: Chills, No: Fever HENT: No: Headaches, Lightheadedness, Neck Pain Cardiovascular: No: Chest Pain or Discomfort, Palpitations Respiratory: No: Cough, Shortness of Breath Gastrointestinal: Positive: Nausea, Abdominal Pain (suprapubic discomfort), No : Vomiting, Diarrhea Genitourinary: Positive: Dysuria, Flank Pain (right flank pain), Other ([place] color urine than normal), No: Frequency Musculoskeletal: Positive: Pain (right flank), No: Weakness Neurologic: No: Weakness, Dizziness, Headache Physical Exam Narrative GENERAL: Well-nourished, well-developed patient, in no acute rest her distress. SKIN: Focused skin assessment warm/dry. HEAD: Normocephalic/atraumatic. EYES: No scleral icterus. No injection or drainage. NECK: Supple, trachea midline. No JVD or lymphadenopathy. CARDIOVASCULAR: Regular rate and rhythm without murmurs, gallops, or rubs. RESPIRATORY: Breath sounds equal bilaterally. No accessory muscle use. GASTROINTESTINAL: Abdomen soft, non-tender, nondistended. Objective suprapubic pain. MUSCULOSKELETAL: No cyanosis, or edema. BACK: Tenderness to percussion on right CVA. Minimal on left. No posterior spinous process tenderness. NEUROLOGICAL: Awake and alert. Cranial nerves II through XII intact. Motor grossly within normal limits. Five out of 5 muscle strength in all muscle groups. Normal speech. Data Data Last Documented VS Vital Signs Date Time Temp Pulse Resp B/P (MAP) Pulse Ox O2 Delivery O2 Flow Rate FiO2 03/20/17 12:02 17 03/20/17 12:00 97.9 78 118/83 (95) 99 Room Air Orders Orders Ua Includes Microscopic (03/20/17 10:46) Iv Access Insert/Monitor (03/20/17 10:46) Sodium Chlor 0.9% 1000 Ml Inj (Ns 1000 M (03/20/17 11:00) Ketorolac Inj (Toradol Inj) (03/20/17 11:00) Prochlorperazine Inj (Compazine Inj) (03/20/17 11:00) Comprehensive Metabolic Panel (03/20/17 10:49) Complete Blood Count With Diff (03/20/17 10:50) Morphine Inj (Morphine Inj) (03/20/17 11:00) Morphine Inj (Morphine Inj) (03/20/17 11:00) Morphine Inj (Morphine Inj) (03/20/17 12:00) Admit Order (Ed Use Only) (03/20/17 15:16) Labs Laboratory Tests Test 03/20/17 11:00 White Blood Count 8.9 TH/MM3 Red Blood Count 4.13 MIL/MM3 Hemoglobin 13.6 GM/DL Hematocrit 39.5 % Mean Corpuscular Volume 95.7 FL Mean Corpuscular Hemoglobin 33.0 PG Mean Corpuscular Hemoglobin Concent 34.5 % Red Cell Distribution Width 12.5 % Platelet Count 327 TH/MM3 Mean Platelet Volume 7.8 FL Neutrophils (%) (Auto) 67.3 % Lymphocytes (%) (Auto) 24.9 % Monocytes (%) (Auto) 5.5 % Eosinophils (%) (Auto) 1.4 % Basophils (%) (Auto) 0.9 % Neutrophils # (Auto) 6.0 TH/MM3 Lymphocytes # (Auto) 2.2 TH/MM3 Monocytes # (Auto) 0.5 TH/MM3 Eosinophils # (Auto) 0.1 TH/MM3 Basophils # (Auto) 0.1 TH/MM3 CBC Comment DIFF FINAL Differential Comment Urine Color YELLOW Urine Turbidity HAZY Urine pH 6.5 Urine Specific [place] 1.014 Urine Protein 30 mg/dL Urine Glucose (UA) NEG mg/dL Urine Ketones NEG mg/dL Urine Occult Blood LARGE Urine Nitrite NEG Urine Bilirubin NEG Urine Urobilinogen LESS THAN 2.0 MG/DL Urine Leukocyte Esterase LARGE Urine RBC /hpf Urine WBC 43 /hpf Urine Squamous Epithelial Cells 4 /hpf Urine Bacteria OCC /hpf Urine Hyaline Casts 3 /lpf Urine Mucus FEW /lpf Blood Urea Nitrogen 14 MG/DL Creatinine 1.01 MG/DL Random Glucose 132 MG/DL Total Protein 7.8 GM/DL Albumin 3.8 GM/DL Calcium Level 9.5 MG/DL Alkaline Phosphatase 59 U/L Aspartate Amino Transf (AST/SGOT) 12 U/L Alanine Aminotransferase (ALT/SGPT) 19 U/L Total Bilirubin 0.2 MG/DL Sodium Level 138 MEQ/L Potassium Level 4.0 MEQ/L Chloride Level 109 MEQ/L Carbon Dioxide Level 19.8 MEQ/L Anion Gap 9 MEQ/L Estimat Glomerular Filtration Rate 66 ML/MIN [facility] Medical Decision Making Medical Screen Exam Complete: Yes Emergency Medical Condition: Yes Differential Diagnosis Persistent UTI versus pyelonephritis versus urinary obstruction Narrative Course 26 year old female history of bilateral renal cocci, who has a renal stent in the right ureter. Patient presents today with complaints of worsening right flank pain and early left flank pain. The patient states that she still has urinary frequency and her urine has become darker and it is painful to urinate. She is currently on Cipro but states that she does not think that this is covering her current infection. She denies any fevers but does report chills. She states that she is scheduled to see Dr. Saucedo on Wednesday. She was here the other day for the same thing and told to follow up with Dr. Saucedo. She states that she was supposed to be seen on the however his office called and stated they would see her on next Wednesday which is the third. The patient has infected urine despite being on antibiotics. Concern is that with the urinary tract infection in the right flank pain that she likely has early pyelonephritis and infected stent. She'll be admitted to the hospital under the resident service. She'll be started on antibiotics. They'll be consult with Dr. Saucedo. Diagnosis Primary Impression: UTI, failed outpatient oral antibiotics Additional Impressions: right ureteral stent bilateral flank pain Geovany Petty MD Mar 20, 2017 10:48
[2017-03-20] MEDS ORDERED: SODIUM CHLOR 0.9% 1000 ML INJ 1,000 ML IV ONE (11:00)
[2017-03-20] MEDS ORDERED: MORPHINE SULFATE 4 MG/ML INJ IV PUSH ONE ×3 (11:00)
[2017-03-20] MEDS ORDERED: PROCHLORPERAZINE INJ 10 MG/2 ML VIAL IV PUSH ONE (11:00)
[2017-03-20] MEDS ORDERED: KETOROLAC TROMETHAMINE 30 MG/ML (IVP) VIAL IV PUSH ONE (11:00)
[2017-03-20 11:29] LABS: BASOPHIL # 0.1 TH/MM3 (0-0.2); BASOPHIL % 0.9 % (0.0-2.0); EOSINOPHIL # 0.1 TH/MM3 (0-0.4); EOSINOPHIL % 1.4 % (0.0-4.0); HEMATOCRIT 39.5 % (35.0-46.0); HEMOGLOBIN 13.6 GM/DL (11.6-15.3); LYMPH % 24.9 % (9.0-44.0); LYMPHOCYTE # 2.2 TH/MM3 (1.0-4.8); MEAN CELL VOLUME 95.7 FL (80.0-100.0); MEAN CORPUSCULAR HGB CONC 34.5 % (32.0-36.0); MEAN PLATELET VOLUME 7.8 FL (7.0-11.0); MONO % 5.5 % (0.0-8.0); MONOCYTE # 0.5 TH/MM3 (0-0.9); NEUT % 67.3 % (16.0-70.0); PLATELET COUNT 327 TH/MM3 (150-450); RED BLOOD COUNT 4.13 MIL/MM3 (4.00-5.30); RED CELL DISTRIBUTION WIDTH 12.5 % (11.6-17.2); WHITE BLOOD COUNT 8.9 TH/MM3 (4.0-11.0)
[2017-03-20 11:37] LABS: BACTERIA, URINE OCC /hpf; BILIRUBIN, URINE NEG (NEG); BLOOD, URINE LARGE (NEG); GLUCOSE,URINE NEG (NEG); HYALINE CAST, URINE 3 /lpf (RARE); KETONE, URINE NEG (NEG); MUCUS URINE FEW /lpf (OCC); NITRITE,URINE NEG (NEG); PH, URINE 6.5 (5.0-8.5); SQUAMOUS EPITHELIAL CELL URINE 4 /hpf (0-5); URINE COLOR YELLOW (YELLW/STRAW); URINE LEUKOCYTE ESTERASE LARGE (NEG)
[2017-03-20 11:52] LABS: ALBUMIN 3.8 GM/DL (3.4-5.0); AST (GOT) 12 U/L (15-37); BICARBONATE 19.8 MEQ/L (21.0-32.0); BLOOD UREA NITROGEN 14 MG/DL (7-18); CALCIUM 9.5 MG/DL (8.5-10.1); CHLORIDE 109 MEQ/L (98-107); CREATININE 1.01 MG/DL (0.50-1.00); GLOMERULAR FILTRATION RATE 66 ML/MIN (>89); GLUCOSE,RANDOM 132 MG/DL (74-106); SODIUM (NA) 138 MEQ/L (136-145)
[2017-03-20 11:54] LABS: ALT (GPT) 19 U/L (10-53)
[2017-03-20 11:55] LABS: ALKALINE PHOSPHATASE 59 U/L (45-117); TOTAL BILIRUBIN ADULT 0.2 MG/DL (0.2-1.0); TOTAL PROTEIN 7.8 GM/DL (6.4-8.2)
[2017-03-20] MEDS ORDERED: MORPHINE SULFATE 2 MG/ML INJ IV PUSH ONE (12:00)
--- NOTE | 2017-03-20 15:33 | HHI.HP ---
[facility] Service Family Medicine Primary Care Physician No Primary Care Physician Admission Diagnosis uti, failed outpatient antibiotics, right renal stent, intractable p Diagnoses: International Travel<30 Days: No Contact w/Intl Traveler<30days: No Known Affected Area: No History of Present Illness Patient is a 26-year-old female with past history of recurrent pyelonephritis, kidney stent who presents today for "kidney pain." The patient states she currently has pain in her abdomen, back which is similar to the multiple past episodes of pyelonephritis she's had. She reports that she had a right kidney stent placed around January 20. this was placed because she has had multiple episodes of kidney stones and pyelonephritis almost monthly. For the past week she has noted pain on urination, pain in her abdomen/back, dark most black urine yesterday, bright red urine today, increase in urine frequency, straining to urinate. She presented to the ED 4 days prior to admission and was started on ciprofloxacin. Her symptoms had worsened so she came back in. Currently she denies any vaginal discharge, states her last period was from 19 of February through 24 of February. She states she recently started taking control over the past couple months because her menstrual cycle typically occurs once every 3-4 months. This is not recent change, it has been present for 9 years. She is currently sexually active with one male partner. No nausea, vomiting, fever, chills. She states she sees Dr. Saucedo however reports Dr. Ramírez was a urologist who placed her stent. (Mike Cary MD R1) Review of Systems Constitutional: COMPLAINS OF: Diaphoretic episodes, Fatigue, Weight gain, Chills, Change in appetite, DENIES: Fever, Weight loss, Dizziness, Night Sweats Endocrine: COMPLAINS OF: Polydipsia, Polyuria, DENIES: Abnorml menstrual pattern, Polyphagia Eyes: DENIES: Blurred vision, Diplopia, Eye inflammation, Eye pain, Vision loss , Photosensitivity, Double Vision Ears, nose, mouth, throat: DENIES: Tinnitus, Hearing loss, Nasal discharge, Throat pain, Hoarseness, Ear Pain, Running Nose, Epistaxis, Sinus Pain Respiratory: DENIES: Apneas, Cough, Snoring, Wheezing, Hemoptysis, Sputum production, Shortness of breath Cardiovascular: DENIES: Chest pain, Palpitations, Syncope, Lower Extremity Edema Gastrointestinal: COMPLAINS OF: Abdominal pain, Nausea, Anorexia, DENIES: Black stools, Bloody stools, Constipation, Diarrhea, Vomiting, Difficulty Swallowing Genitourinary: COMPLAINS OF: Urinary frequency, Hematuria, Dysuria, Nocturia, DENIES: Abnormal vaginal bleeding, Urgency, Vaginal discharge Musculoskeletal: COMPLAINS OF: Back pain, DENIES: Joint pain, Muscle aches, Stiffness, Joint Swelling, Neck pain Integumentary: DENIES: Abnormal pigmentation, Pruritus, Rash Hematologic/lymphatic: DENIES: Bruising, Lymphadenopathy Immunologic/allergic: DENIES: Eczema, Urticaria Neurologic: COMPLAINS OF: Abnormal gait (antalgic), DENIES: Headache, Localized weakness, Paresthesias, Poor Balance Psychiatric: DENIES: Anxiety, Confusion, Mood changes, Depression, Hallucinations, Suicidal Ideation, Homicidal Ideation (Mike Cary MD R1) Past Family Social History Past Medical History Chronic recurrent pyelonephritis Past Surgical History Right Kidney Stent January 2017 Cholecystectomy 2010 Kidney stone extraction 2016 (Mike Cary MD R1) Allergies: Coded Allergies: amoxicillin (Verified Allergy, Severe, Anaphylaxis, 03/03/17) Penicillins (Verified Allergy, Unknown, Rash, 03/03/17) Family History Father: at 49, from OD, Manic depressive Mother: Alive 52, DM Social History EtOH: Occasional, stopped Tobacco: 1/2 pack a day for 10 years Drugs: None (Mike Cary MD R1) Physical Exam Vital Signs Vital Signs Date Time Temp Pulse Resp B/P (MAP) Pulse Ox O2 Delivery O2 Flow Rate FiO2 03/20/17 12:02 17 03/20/17 12:00 97.9 78 16 118/83 (95) 99 Room Air 03/20/17 11:21 17 03/20/17 10:38 16 03/20/17 10:22 98.1 88 18 128/80 (96) 98 Room Air Physical Exam GENERAL: This is a well-nourished, well-developed patient, in no apparent distress. SKIN: No rashes, ecchymoses or lesions. Cool and dry. HEAD: Atraumatic. Normocephalic. No temporal or scalp tenderness. EYES: Pupils equal round and reactive. Extraocular motions intact. No scleral icterus. No injection or drainage. ENT: Nose without bleeding, purulent drainage or septal hematoma. Throat without erythema, tonsillar hypertrophy or exudate. Uvula midline. Airway patent. NECK: Trachea midline. No JVD or lymphadenopathy. Supple, nontender, no meningeal signs. CARDIOVASCULAR: Regular rate and rhythm without murmurs, gallops, or rubs. RESPIRATORY: Clear to auscultation. Breath sounds equal bilaterally. No wheezes , rales, or rhonchi. GASTROINTESTINAL: Abdomen soft, non-tender, nondistended. No hepato-splenomegaly , or palpable masses. No guarding. BACK: CVA tenderness right greater than left MUSCULOSKELETAL: Extremities without clubbing, cyanosis, or edema. No joint tenderness, effusion, or edema noted. No calf tenderness. NEUROLOGICAL: Awake and alert. Motor and sensory grossly within normal limits. Five out of 5 muscle strength in all muscle groups. Normal speech. Laboratory Laboratory Tests Test 03/20/17 11:00 White Blood Count 8.9 Red Blood Count 4.13 Hemoglobin 13.6 Hematocrit 39.5 Mean Corpuscular Volume 95.7 Mean Corpuscular Hemoglobin 33.0 Mean Corpuscular Hemoglobin Concent 34.5 Red Cell Distribution Width 12.5 Platelet Count 327 Mean Platelet Volume 7.8 Neutrophils (%) (Auto) 67.3 Lymphocytes (%) (Auto) 24.9 Monocytes (%) (Auto) 5.5 Eosinophils (%) (Auto) 1.4 Basophils (%) (Auto) 0.9 Neutrophils # (Auto) 6.0 Lymphocytes # (Auto) 2.2 Monocytes # (Auto) 0.5 Eosinophils # (Auto) 0.1 Basophils # (Auto) 0.1 CBC Comment DIFF FINAL Differential Comment Urine Color YELLOW Urine Turbidity HAZY Urine pH 6.5 Urine Specific [place] 1.014 Urine Protein 30 Urine Glucose (UA) NEG Urine Ketones NEG Urine Occult Blood LARGE Urine Nitrite NEG Urine Bilirubin NEG Urine Urobilinogen LESS THAN 2.0 Urine Leukocyte Esterase LARGE Urine RBC Urine WBC 43 Urine Squamous Epithelial Cells 4 Urine Bacteria OCC Urine Hyaline Casts 3 Urine Mucus FEW Blood Urea Nitrogen 14 Creatinine 1.01 Random Glucose 132 Total Protein 7.8 Albumin 3.8 Calcium Level 9.5 Alkaline Phosphatase 59 Aspartate Amino Transf (AST/SGOT) 12 Alanine Aminotransferase (ALT/SGPT) 19 Total Bilirubin 0.2 Sodium Level 138 Potassium Level 4.0 Chloride Level 109 Carbon Dioxide Level 19.8 Anion Gap 9 Estimat Glomerular Filtration Rate 66 (Mike Cary MD R1) Result Diagram: 03/20/17 1100 03/20/17 1100 Caprini VTE Risk Assessment Caprini VTE Risk Assessment: No/Low Risk (score <= 1) Caprini Risk Assessment Model Point Value = 1 Point Value = 2 Point Value = 3 Point Value = 5 Age 41-60 Minor surgery BMI > 25 kg/m2 Swollen legs Varicose veins or History of unexplained or recurrent spontaneous Oral contraceptives or hormone replacement Sepsis (< 1 month) Serious lung disease, including pneumonia (< 1 month) Abnormal pulmonary function Acute myocardial infarction Congestive heart failure (< 1 month) History of inflammatory bowel disease Medical patient at bed rest Age 61-74 Arthroscopic surgery Major open surgery (> 45 min) Laparoscopic surgery (> 45 min) Malignancy Confined to bed (> 72 hours) Immobilizing plaster cast Central venous access Age >= 75 History of VTE Family history of VTE Factor V Leiden Prothrombin [id number] Lupus anticoagulant Anticardiolipin antibodies Elevated serum homocysteine Heparin-induced thrombocytopenia Other congenital or acquired thrombophilia Stroke (< 1 month) Elective arthroplasty Hip, pelvis, or leg fracture Acute spinal cord injury (< 1 month) Prophylaxis Regimen Total Risk Factor Score Risk Level Prophylaxis Regimen 0-1 Low Early ambulation 2 Moderate Order ONE of the following: *Sequential Compression Device (SCD) *Heparin 5000 units SQ BID 3-4 Higher Order ONE of the following medications: *Heparin 5000 units SQ TID *Enoxaparin/Lovenox 40 mg SQ daily (WT < 150 kg, CrCl > 30 mL/min) *Enoxaparin/Lovenox 30 mg SQ daily (WT < 150 kg, CrCl > 10-29 mL/min) *Enoxaparin/Lovenox 30 mg SQ BID (WT < 150 kg, CrCl > 30 mL/min) AND/OR *Sequential Compression Device (SCD) 5 or more Highest Order ONE of the following medications: *Heparin 5000 units SQ TID (Preferred with Epidurals) *Enoxaparin/Lovenox 40 mg SQ daily (WT < 150 kg, CrCl > 30 mL/min) *Enoxaparin/Lovenox 30 mg SQ daily (WT < 150 kg, CrCl > 10-29 mL/min) *Enoxaparin/Lovenox 30 mg SQ BID (WT < 150 kg, CrCl > 30 mL/min) AND *Sequential Compression Device (SCD) (Mike Cary MD R1) Assessment and Plan Assessment and Plan 26-year-old female with history significant for right ureteral stenting, surgery for nephrolithiasis removal who presents today with likely complicated UTI. CT from 03/06 shows 4 mm stone in the mid right ureter, hydronephrosis and hydroureter with ureteral stent, multiple tiny nonobstructing stones in the left kidney. No current acute gynecological complaints. (Mike Cary MD R1) Problem List: (1) Complicated UTI (urinary tract infection) ICD Codes: N39.0 - Urinary tract infection, site not specified Plan: 26-year-old female with history significant for right ureteral stenting, surgery for nephrolithiasis removal who presents today with likely complicated UTI. CT from 03/06 shows 4 mm stone in the mid right ureter, hydronephrosis and hydroureter with ureteral stent, multiple tiny nonobstructing stones in the left kidney. No current acute gynecological complaints. Afebrile. -Consult urology -Rocephin 1 g every 24 hours -Toradol for pain, morphine for breakthrough -UA with innumerable RBCs, large LE -Follow-up urine culture (2) FEN Plan: Fluids -Maintenance fluids 120 mL per hour Electrolytes: -Monitor and replete as needed Nutrition: -regular diet (Mike Cary MD R1) Problem List: (1) Complicated UTI (urinary tract infection) ICD Codes: N39.0 - Urinary tract infection, site not specified Plan: 26-year-old female with history significant for right ureteral stenting, surgery for nephrolithiasis removal who presents today with likely complicated UTI. CT from 03/06 shows 4 mm stone in the mid right ureter, hydronephrosis and hydroureter with ureteral stent, multiple tiny nonobstructing stones in the left kidney. No current acute gynecological complaints. Afebrile. -Consult urology -Rocephin 1 g every 24 hours -Toradol for pain, morphine for breakthrough -UA with innumerable RBCs, large LE -Follow-up urine culture (2) FEN Plan: Fluids -Maintenance fluids 120 mL per hour Electrolytes: -Monitor and replete as needed Nutrition: -regular diet See the residents documentation for details. I saw and evaluated the patient regarding the evans portions of this evaluation and agree with the residents findings and plans as written. I have reviewed the patients past medical/surgical and social histories and updated as appropriate. Parts of this note were created using [employer] voice recognition software program. While efforts were made to correct any mistakes made by this software, some mistakes, errors, and omissions may remain in the final note that were not caught when the note was originally created. Plan of care was discussed and agreed upon with the patient as specifically documented in the above note. An opportunity to ask questions with explanation was provided. Patient voiced understanding on all information reviewed and discussed. (Too Dunlap MD) Physician Certification 2 Midnight Certification Type: Admission for Inpatient Services Order for Inpatient Services The services are ordered in accordance with Medicare regulations or non- Medicare payer requirements, as applicable. In the case of services not specified as inpatient-only, they are appropriately provided as inpatient services in accordance with the 2-midnight benchmark. Estimated LOS (days): 2 2 days is the estimated time the patient will need to remain in the hospital, assuming treatment plan goals are met and no additional complications. Post-Hospital Plan: Home (Mike Cary MD R1) Mike Cary MD R1 Mar 20, 2017 15:33 Too Dunlap MD Mar 21, 2017 13:05
[2017-03-20] MEDS ORDERED: KETOROLAC TROMETHAMINE 30 MG/ML (IVP) VIAL IV PUSH PRN (16:00)
[2017-03-20] MEDS ORDERED: ONDANSETRON HCL 4 MG/2 ML VIAL IVP PRN (16:00)
[2017-03-20] MEDS ORDERED: SODIUM CHLORIDE 0.9% FLUSH 10 ML FLUSH IV FLUSH PRN (16:00)
[2017-03-20] MEDS ORDERED: NALOXONE HCL 0.4 MG/ML AMP IV PUSH PRN ×2 (16:00)
[2017-03-20] MEDS ORDERED: ACETAMINOPHEN 325 MG TAB PO PRN (16:00)
[2017-03-20] MEDS: SODIUM CHLOR 0.9% 1000 ML INJ 1,000 ML IV SCH (16:07)
[2017-03-20] MEDS: MORPHINE SULFATE 2 MG/ML INJ IV PUSH PRN (16:08)
[2017-03-20] MEDS ORDERED: cefTRIAXone INJ 1,000 MG in SODIUM CHLORIDE 0.9% INJ 100 ML IV SCH (17:00)
[2017-03-20] MEDS ORDERED: ZOLPIDEM TARTRATE 5 MG TAB PO PRN (18:00)
[2017-03-20] MEDS: KETOROLAC TROMETHAMINE 30 MG/ML (IVP) VIAL IV PUSH PRN (20:36)
[2017-03-20] MEDS ORDERED: REMOVE OLD PATCH T-DERMAL SCH (21:00)
[2017-03-20] MEDS ORDERED: POVIDONE IODINE 5% (ANTISEPSIS KIT) 4 APPLICATIONS EACH NARE PRN (23:45)
[2017-03-20] MEDS ORDERED: LACTATED RINGER'S 1000 ML IV PRN (23:45)
[2017-03-20] MEDS ORDERED: CHLORHEXIDINE GLUCONATE 2 % 1 PACK (2 CLOTHS) TOPICAL PRN (23:45)
[2017-03-21] VITALS: BP 107/56; PULSE 77; RESP 16; TEMP 97.7; O2SAT 99
[2017-03-21] MEDS: SODIUM CHLORIDE 0.9% FLUSH 10 ML FLUSH IV FLUSH SCH ×2 (00:46→08:58)
[2017-03-21] MEDS: SODIUM CHLOR 0.9% 1000 ML INJ 1,000 ML IV SCH ×2 (00:46→09:01)
[2017-03-21] MEDS: KETOROLAC TROMETHAMINE 30 MG/ML (IVP) VIAL IV PUSH PRN ×2 (00:47→08:47)
[2017-03-21] MEDS: MORPHINE SULFATE 2 MG/ML INJ IV PUSH PRN ×2 (05:16→12:29)
[2017-03-21 06:06] LABS: AUTOMATED NEUTROPHIL # 3.5 TH/MM3 (1.8-7.7); BASOPHIL # 0.1 TH/MM3 (0-0.2); BASOPHIL % 0.7 % (0.0-2.0); EOSINOPHIL # 0.1 TH/MM3 (0-0.4); EOSINOPHIL % 1.8 % (0.0-4.0); HEMOGLOBIN 12.6 GM/DL (11.6-15.3); LYMPH % 40.4 % (9.0-44.0); LYMPHOCYTE # 2.8 TH/MM3 (1.0-4.8); MEAN CORPUSCULAR HEMOGLOBIN 33.9 PG (27.0-34.0); MEAN PLATELET VOLUME 7.8 FL (7.0-11.0); MONO % 7.4 % (0.0-8.0); MONOCYTE # 0.5 TH/MM3 (0-0.9); NEUT % 49.7 % (16.0-70.0); PLATELET COUNT 280 TH/MM3 (150-450); RED BLOOD COUNT 3.72 MIL/MM3 (4.00-5.30); RED CELL DISTRIBUTION WIDTH 12.6 % (11.6-17.2)
[2017-03-21 06:27] LABS: BICARBONATE 22.4 MEQ/L (21.0-32.0); CALCIUM 8.2 MG/DL (8.5-10.1); CREATININE 0.89 MG/DL (0.50-1.00)
[2017-03-21 08:00] VITALS: BP 109/68; PULSE 78; RESP 16; TEMP 97.8; O2SAT 98
[2017-03-21] MEDS ORDERED: LIDOCAINE 2% JELLY 30 ML TUBE ONE (08:54)
[2017-03-21] MEDS ORDERED: NICOTINE 7 MG/24 HR PATCH T-DERMAL SCH (09:00)
[2017-03-21] MEDS ORDERED: REMOVE OLD PATCH T-DERMAL SCH (09:00)
[2017-03-21] MEDS ORDERED: CIPROFLOXACIN 400 MG PREMIX 200 ML ONE (09:13)
--- NOTE | 2017-03-21 09:37 | PD.OP ---
Operative Report Date of Surgery: Mar 21, 2017 Preoperative Diagnosis: Retained right ureteral stent with a 4 mm right ureteral calculus Postoperative Diagnosis: Same Procedure: Flexible cystoscopy with stent removal Anesthesia: MAC Surgeon: Khoa Saucedo [employer] Farmworker(s): None Resident Surgeon: None Operation and Findings: 26-year-old female with history of 15 mm right renal calculus with stent insertion followed by right extraportal shockwave lithotripsy. Patient was having significant right flank pain due to retained stent and decision was made to bring the patient down to the operating room to undergo cystoscopy with stent pull. Risk and benefits were discussed and she was willing to proceed. Patient was brought to the operating room and identified by myself as Linda Foss. She was placed in the dorsal lithotomy position, prepped and draped in usual sterile fashion, received preprocedure antibiotics and MAC anesthesia was administered. Flex will cystoscope was inserted into the bladder and using the alligator grasper I was able to remove it without difficulty. She tolerated the procedure well. She'll follow-up in the office on her next scheduled appointment. Khoa Saucedo DO Mar 21, 2017 09:37
[2017-03-21] MEDS ORDERED: DO NOT ADM ANY ANTICOAGULANT DRUGS PRN (09:44)
[2017-03-21] MEDS ORDERED: MIDAZOLAM HCL 2 MG/2 ML VIAL ONE (09:45)
--- NOTE | 2017-03-21 09:50 | MB ---
cc: JET SANTANA DATE OF CONSULTATION: 03/21/2017 HISTORY OF PRESENT ILLNESS Ms. Hansen is a 26-year-old female with history of a 1.5 cm right renal calculus, who underwent cystoscopy with right double-J stent insertion followed by right extracorporeal shockwave lithotripsy by Dr. Ramírez. The patient has been seen in the ER multiple times due to recurrent stent pain and she has also been treated for UTI in the past. She denies any fever or chills at the present time. She was here 4 days ago and started on ciprofloxacin. At that time she ran out of pain medication which was the reason for her return to the emergency room and now she returns again. She has appointment in the office to have her stent pulled in the near future. PAST MEDICAL HISTORY Her medical history shows recurrent history of stones. PAST SURGICAL HISTORY Past surgical history of stent placement with right extracorporeal shockwave lithotripsy, cholecystectomy in the past. ALLERGIES AMOXICILLIN AND PENICILLINS. SOCIAL HISTORY Half pack a day smoker for 10 years. Occasional alcohol. FAMILY HISTORY Denies history of stone disease. REVIEW OF SYSTEMS Complains of frequency, dysuria, nocturia with right-sided flank pain. Denies gait disturbances, bleeding disorders, headaches. Denies fever. Complains of fatigue. Denies blurred vision. Denies apnea. Denies chest pain. Denies abdominal pain or diarrhea or constipation. The remaining review of systems were reviewed and were negative. PHYSICAL EXAMINATION VITAL SIGNS: Temperature is 97.7, heart rate 77, respiratory rate 16, 107/56. O2 saturations 99% on room air. GENERAL: She is a well-developed, well-nourished 26-year-old female, no acute distress. HEENT: Normocephalic, atraumatic. Pupils equal, round, regular and reactive to light. Extraocular movements intact. NECK: Supple. HEART: Regular rate and rhythm. LUNGS: Clear. ABDOMEN: Soft, nontender, nondistended. There is mild right CVA tenderness noted. Normal female external genitalia is noted. EXTREMITIES: Show no evidence of cyanosis, clubbing or edema. NEURO: Cranial nerves II-XII are intact. SKIN: No lesions. PSYCHE: Generalized mood. LABORATORY DATA White count 7.0, hemoglobin 12.6, hematocrit 36.0, platelet count 280, sodium 142, potassium 4.1, chloride 112, CO2 22.4, BUN 13, creatinine 0.89, glucose of 91. Urinalysis shows large leukocyte esterase, 43 white cells, numerous red cells. IMAGING STUDIES Imaging from prior admission shows a 4 mm stone along the course of the right ureter and stent, with the stent in position with mild to moderate hydronephrosis. ASSESSMENT A 26-year-old female with a 4 mm stone along her right ureteral stent with flank pain and stent irritation. PLAN Will plan for cystoscopy and removal of stent today and then she can follow up with Dr. Ramírez in the office to review for stone analysis. Will continue antibiotics at the time of discharge. Thank you for the consult. Jet LOVE/TLL /9:01 AM /9:09 AM
[2017-03-21 12:00] VITALS: BP 119/65; PULSE 75; RESP 17; TEMP 97; O2SAT 98
[2017-03-21] MEDS ORDERED: PROPOFOL 200 MG/20 ML AMP IV ONE (12:00)
[2017-03-21] MEDS ORDERED: EPINEPHrine HCL (1:1000) 1 MG/ML VIAL IV ONE (12:00)
[2017-03-21] MEDS ORDERED: LIDOCAINE HCL 1% PF 5 ML SYRINGE OTHER ONE (12:00)
[2017-03-21] MEDS ORDERED: KETOROLAC TROMETHAMINE 30 MG/ML (IVP) VIAL IV PUSH ONE (12:00)
[2017-03-21] MEDS ORDERED: LEVO750T3 PO (12:33)
--- NOTE | 2017-03-21 12:34 | HHI.DS ---
Discharge Summary Admission Date Mar 20, 2017 at 15:18 Admitting Diagnosis uti, failed outpatient antibiotics, right renal stent, intractable p (1) Complicated UTI (urinary tract infection) Plan: 26-year-old female with history significant for right ureteral stenting, surgery for nephrolithiasis removal who presents today with likely complicated UTI. CT from 03/06 shows 4 mm stone in the mid right ureter, hydronephrosis and hydroureter with ureteral stent, multiple tiny nonobstructing stones in the left kidney. No current acute gynecological complaints. Afebrile. -Consult urology -Rocephin 1 g every 24 hours -Toradol for pain, morphine for breakthrough -UA with innumerable RBCs, large LE -Follow-up urine culture ICD Codes: N39.0 - Urinary tract infection, site not specified (2) FEN Plan: Fluids -Maintenance fluids 120 mL per hour Electrolytes: -Monitor and replete as needed Nutrition: -regular diet Brief History Patient is a 26-year-old female with past history of recurrent pyelonephritis, kidney stent who presents today for "kidney pain." The patient states she currently has pain in her abdomen, back which is similar to the multiple past episodes of pyelonephritis she's had. She reports that she had a right kidney stent placed around January 20. this was placed because she has had multiple episodes of kidney stones and pyelonephritis almost monthly. For the past week she has noted pain on urination, pain in her abdomen/back, dark most black urine yesterday, bright red urine today, increase in urine frequency, straining to urinate. She presented to the ED 4 days prior to admission and was started on ciprofloxacin. Her symptoms had worsened so she came back in. Currently she denies any vaginal discharge, states her last period was from 19 of February through 24 of February. She states she recently started taking control over the past couple months because her menstrual cycle typically occurs once every 3-4 months. This is not recent change, it has been present for 9 years. She is currently sexually active with one male partner. No nausea, vomiting, fever, chills. She states she sees Dr. Saucedo however reports Dr. Ramírez was a urologist who placed her stent. CBC/BMP: 03/21/17 0459 03/21/17 0459 Significant Findings Laboratory Tests Test 03/20/17 11:00 03/21/17 04:59 Urine Turbidity HAZY (CLEAR) Urine Protein 30 mg/dL (NEG-TRACE) Urine Occult Blood LARGE (NEG) Urine Leukocyte Esterase LARGE (NEG) Urine WBC 43 /hpf (0-5) Urine Bacteria OCC /hpf (NONE) Urine Mucus FEW /lpf (OCC) Creatinine 1.01 MG/DL (0.50-1.00) Random Glucose 132 MG/DL (74-106) Aspartate Amino Transf (AST/SGOT) 12 U/L (15-37) Chloride Level 109 MEQ/L (98-107) 112 MEQ/L (98-107) Carbon Dioxide Level 19.8 MEQ/L (21.0-32.0) Estimat Glomerular Filtration Rate 66 ML/MIN (>89) 77 ML/MIN (>89) Red Blood Count 3.72 MIL/MM3 (4.00-5.30) Calcium Level 8.2 MG/DL (8.5-10.1) Mike Cary MD R1 Mar 21, 2017 12:34
--- NOTE | 2017-03-21 12:34 | HHI.DCPOC ---
Discharge Care Plan Diagnosis: (1) Complicated UTI (urinary tract infection) Goals to Promote Your Health * To prevent worsening of your condition and complications * To maintain your health at the optimal level Directions to Meet Your Goals Take your medications as prescribed Follow your dietary instruction Follow activity as directed Keep your appointments as scheduled Take your immunizations and boosters as scheduled If your symptoms worsen call your PCP, if no PCP go to Urgent Care Center or Emergency Room Smoking is Dangerous to Your Health. Avoid second hand smoke Call the 24-hour hour crisis hotline for domestic abuse at Plan of care was discussed and agreed upon with the patient as specifically documented in the above note. An opportunity to ask questions with explanation was provided. Patient voiced understanding on all information reviewed and discussed. Mike Cary MD R1 Mar 21, 2017 12:34 Too Dunlap MD Mar 21, 2017 13:13
--- NOTE | 2017-03-21 14:52 | HHI.HP ---
HPI Service Family Medicine Primary Care Physician No Primary Care Physician Admission Diagnosis uti, failed outpatient antibiotics, right renal stent, intractable p Diagnoses: (1) Complicated UTI (urinary tract infection) (2) FEN International Travel<30 Days: No Contact w/Intl Traveler<30days: No Known Affected Area: No History of Present Illness Patient was seen and examined at bedside today. She is feeling much better. She underwent state removal by urology. She doesn't have any pain at this time. States she sees had some urination with no discomfort. She is accompanied by her mother at the bedside. Patient states she would like to go home. Has been eating a little bit of breakfast. Denies any issues with chest pain, shortness of breath, or lightheadedness. Review of Systems Constitutional: DENIES: Diaphoretic episodes, Fatigue, Fever, Weight gain Eyes: DENIES: Blurred vision, Diplopia, Eye inflammation Respiratory: DENIES: Apneas, Cough, Snoring, Wheezing, Hemoptysis Cardiovascular: DENIES: Chest pain, Palpitations, Syncope Gastrointestinal: DENIES: Abdominal pain, Black stools, Bloody stools, Constipation, Diarrhea, Nausea Genitourinary: COMPLAINS OF: Hematuria, DENIES: Urinary frequency, Urinary incontinence, Urgency Musculoskeletal: DENIES: Joint pain, Muscle aches, Stiffness Neurologic: DENIES: Abnormal gait, Headache, Localized weakness, Paresthesias, Seizures Psychiatric: DENIES: Anxiety, Confusion, Mood changes, Depression, Hallucinations Past Family Social History Past Medical History Chronic recurrent pyelonephritis Past Surgical History Right Kidney Stent January 2017 Cholecystectomy 2010 Kidney stone extraction 2016 Allergies: Coded Allergies: amoxicillin (Verified Allergy, Severe, Anaphylaxis, 03/03/17) Penicillins (Verified Allergy, Unknown, Rash, 03/03/17) Family History Father: at 49, from OD, Manic depressive Mother: Alive 52, DM Social History EtOH: Occasional, stopped Tobacco: 1/2 pack a day for 10 years Drugs: None Physical Exam Vital Signs Vital Signs Date Time Temp Pulse Resp B/P (MAP) Pulse Ox O2 Delivery O2 Flow Rate FiO2 03/21/17 12:00 97.0 75 17 119/65 (83) 98 03/21/17 10:05 78 18 104/62 (76) 98 Room Air 03/21/17 09:44 98.0 86 18 106/64 (78) 96 Nasal Cannula 2 12/31/17 08:00 97.8 78 16 109/68 (82) 98 03/21/17 00:00 97.7 77 16 107/56 (73) 99 03/20/17 20:00 97.9 64 16 115/71 (86) 99 03/20/17 18:00 97.3 73 18 113/69 (84) 98 03/20/17 16:57 97.8 78 16 124/76 (92) 99 03/20/17 16:13 17 03/20/17 15:42 97.9 76 16 108/69 (82) 100 Room Air Physical Exam GENERAL: This is a well-nourished, well-developed patient, in no apparent distress. SKIN: No rashes, ecchymoses or lesions. Cool and dry. HEAD: Atraumatic. Normocephalic. No temporal or scalp tenderness. EYES: Pupils equal round and reactive. Extraocular motions intact. No scleral icterus. No injection or drainage. ENT: Nose without bleeding, purulent drainage or septal hematoma. Throat without erythema, tonsillar hypertrophy or exudate. Uvula midline. Airway patent. NECK: Trachea midline. No JVD or lymphadenopathy. Supple, nontender, no meningeal signs. CARDIOVASCULAR: Regular rate and rhythm without murmurs, gallops, or rubs. RESPIRATORY: Clear to auscultation. Breath sounds equal bilaterally. No wheezes , rales, or rhonchi. GASTROINTESTINAL: Abdomen soft, non-tender, nondistended. No hepato-splenomegaly , or palpable masses. No guarding. MUSCULOSKELETAL: Extremities without clubbing, cyanosis, or edema. No joint tenderness, effusion, or edema noted. No calf tenderness. Negative Homans sign bilaterally. NEUROLOGICAL: Awake and alert. Cranial nerves II through XII intact. Motor and sensory grossly within normal limits. Five out of 5 muscle strength in all muscle groups. Normal speech. Laboratory Laboratory Tests Test 03/21/17 04:59 White Blood Count 7.0 Red Blood Count 3.72 Hemoglobin 12.6 Hematocrit 36.0 Mean Corpuscular Volume 97.0 Mean Corpuscular Hemoglobin 33.9 Mean Corpuscular Hemoglobin Concent 35.0 Red Cell Distribution Width 12.6 Platelet Count 280 Mean Platelet Volume 7.8 Neutrophils (%) (Auto) 49.7 Lymphocytes (%) (Auto) 40.4 Monocytes (%) (Auto) 7.4 Eosinophils (%) (Auto) 1.8 Basophils (%) (Auto) 0.7 Neutrophils # (Auto) 3.5 Lymphocytes # (Auto) 2.8 Monocytes # (Auto) 0.5 Eosinophils # (Auto) 0.1 Basophils # (Auto) 0.1 CBC Comment DIFF FINAL Differential Comment Blood Urea Nitrogen 13 Creatinine 0.89 Random Glucose 91 Calcium Level 8.2 Sodium Level 142 Potassium Level 4.1 Chloride Level 112 Carbon Dioxide Level 22.4 Anion Gap 8 Estimat Glomerular Filtration Rate 77 Result Diagram: 03/21/179 03/21/17 0459 Caprini VTE Risk Assessment Caprini VTE Risk Assessment: No/Low Risk (score <= 1) Caprini Risk Assessment Model Point Value = 1 Point Value = 2 Point Value = 3 Point Value = 5 Age 41-60 Minor surgery BMI > 25 kg/m2 Swollen legs Varicose veins or History of unexplained or recurrent spontaneous Oral contraceptives or hormone replacement Sepsis (< 1 month) Serious lung disease, including pneumonia (< 1 month) Abnormal pulmonary function Acute myocardial infarction Congestive heart failure (< 1 month) History of inflammatory bowel disease Medical patient at bed rest Age 61-74 Arthroscopic surgery Major open surgery (> 45 min) Laparoscopic surgery (> 45 min) Malignancy Confined to bed (> 72 hours) Immobilizing plaster cast Central venous access Age >= 75 History of VTE Family history of VTE Factor V Leiden Prothrombin [id number] Lupus anticoagulant Anticardiolipin antibodies Elevated serum homocysteine Heparin-induced thrombocytopenia Other congenital or acquired thrombophilia Stroke (< 1 month) Elective arthroplasty Hip, pelvis, or leg fracture Acute spinal cord injury (< 1 month) Prophylaxis Regimen Total Risk Factor Score Risk Level Prophylaxis Regimen 0-1 Low Early ambulation 2 Moderate Order ONE of the following: *Sequential Compression Device (SCD) *Heparin 5000 units SQ BID 3-4 Higher Order ONE of the following medications: *Heparin 5000 units SQ TID *Enoxaparin/Lovenox 40 mg SQ daily (WT < 150 kg, CrCl > 30 mL/min) *Enoxaparin/Lovenox 30 mg SQ daily (WT < 150 kg, CrCl > 10-29 mL/min) *Enoxaparin/Lovenox 30 mg SQ BID (WT < 150 kg, CrCl > 30 mL/min) AND/OR *Sequential Compression Device (SCD) 5 or more Highest Order ONE of the following medications: *Heparin 5000 units SQ TID (Preferred with Epidurals) *Enoxaparin/Lovenox 40 mg SQ daily (WT < 150 kg, CrCl > 30 mL/min) *Enoxaparin/Lovenox 30 mg SQ daily (WT < 150 kg, CrCl > 10-29 mL/min) *Enoxaparin/Lovenox 30 mg SQ BID (WT < 150 kg, CrCl > 30 mL/min) AND *Sequential Compression Device (SCD) Assessment and Plan Assessment and Plan 26-year-old female with history significant for right ureteral stenting, surgery for nephrolithiasis removal who presents today with likely complicated UTI. CT from 03/06 shows 4 mm stone in the mid right ureter, hydronephrosis and hydroureter with ureteral stent, multiple tiny nonobstructing stones in the left kidney. No current acute gynecological complaints. Problem List: (1) Complicated UTI (urinary tract infection) ICD Codes: N39.0 - Urinary tract infection, site not specified Plan: Patient has been seen by urology Stent has been removed Symptoms improved significantly Can possibly go home today We'll need to place patient on outpatient antibiotics She'll need follow-up with urology in the future We'll discuss her care with urology, but believe that she'll be able to go home once symptoms improve (2) FEN Plan: Fluids -Maintenance fluids Electrolytes: -Monitor and replete as needed Nutrition: -regular diet Parts of this note were created using [employer] voice recognition software program. While efforts were made to correct any mistakes made by this software, some mistakes, errors, and omissions may remain in the final note that were not caught when the note was originally created. Plan of care was discussed and agreed upon with the patient as specifically documented in the above note. An opportunity to ask questions with explanation was provided. Patient voiced understanding on all information reviewed and discussed. Physician Certification 2 Midnight Certification Type: Admission for Inpatient Services Order for Inpatient Services The services are ordered in accordance with Medicare regulations or non- Medicare payer requirements, as applicable. In the case of services not specified as inpatient-only, they are appropriately provided as inpatient services in accordance with the 2-midnight benchmark. Estimated LOS (days): 2 days is the estimated time the patient will need to remain in the hospital, assuming treatment plan goals are met and no additional complications. Post-Hospital Plan: Home Too Dunlap MD Mar 21, 2017 14:52
== END 2017-03-21 14:54 | disposition home or self-care (01) | DRG 699 ==
LOC: NEPC 10:20 → NEDA 15:18 → N07B 17:16
PROVIDERS: ADMIT Family Medicine; ATTEND Family Medicine
PROC: 0TP98DZ Removal of Intraluminal Device from Ureter, Via Natural or Artificial Opening Endoscopic (ICD-10-PCS; principal; 2017-03-21 09:14)
DX: T83.84XA Pain due to genitourinary prosthetic devices, implants and grafts, initial encounter (principal); N13.6 Pyonephrosis; F17.200 Nicotine dependence, unspecified, uncomplicated; Y83.8 Other surgical procedures as the cause of abnormal reaction of the patient, or of later complication, without mention of misadventure at the time of the procedure; Z87.440 Personal history of urinary (tract) infections; Z88.0 Allergy status to penicillin
CPT/HCPCS: 80048; 80053; 81001; 85025; 96361; 96374; 96375; J0171; J0696; J0744; J0780; J1885; J2250; J2270; J3010; J7030